=== PATIENT | female | born 1960 | race Caucasian/White ===

== ENCOUNTER 2018-05-24 12:48 | Inpatient (IN) ==
[2018-05-24] MEDS ORDERED: Piperacil/Tazo 4.5 GM Premix 4.5 GM/100 ML BAG IV.SIG ONE (14:26)
[2018-05-24] MEDS ORDERED: Acetaminophen 325 MG Tablet PO ONE (14:26)
[2018-05-24] MEDS ORDERED: Sod Chloride 0.9% Inj 1,000 ML IV.SIG SCH ×2 (14:30→14:45)
[2018-05-24] MEDS ORDERED: Vancomycin Inj 1,000 MG in Sodium Chlor 0.9% Inj 250 ML IV.SIG SCH (15:00)
[2018-05-24] MEDS ORDERED: Vancomycin Inj 1 GM/200 ML PIGGYBACK IV.SIG SCH (15:00)
[2018-05-24 15:06] LABS: Baso # (Auto) 0.1 th/mm3 (0.0-0.2); Baso % (Auto) 0.7 % (0.0-2.0); Eos # (Auto) 0.1 th/mm3 (0.0-0.4); Hematocrit 38.4 % (35.0-46.0); Hemoglobin 12.6 gm/dL (11.6-15.3); Lymph # (Auto) 2.9 th/mm3 (1.0-4.8); Lymph % (Auto) 23.8 % (9.0-44.0); Mean Corpuscular HGB Conc 32.8 % (32.0-36.0); Mean Corpuscular Hemoglobin 29.1 pg (27.0-34.0); Mean Corpuscular Volume 88.6 fL (80.0-100.0); Mean Platelet Volume 8.2 fL (7.0-11.0); Mono % (Auto) 7.9 % (0.0-8.0); Neut # (Auto) 8.1 th/mm3 (1.8-7.7); Neut % (Auto) 66.6 % (16.0-70.0); Platelet Count 299 th/mm3 (150-450); Red Blood Count 4.33 mil/mm3 (4.00-5.30); Red Cell Distribution Width 14.3 % (11.6-17.2); White Blood Count 12.1 th/mm3 (4.0-11.0)
--- NOTE | 2018-05-24 15:35 | ED ---
HPI General Chief complaint: Skin/Abscess/Foreign Body Stated complaint: Poss infected Wound Time Seen by Provider: 05/24/18 14:07 Source: patient and family Mode of arrival: ambulatory Limitations: no limitations History of Present Illness HPI narrative: 57-year-old female that presents to the ED for evaluation of fever, tachycardia and possible infection to her right breast. Patient has a history of what appears to be an implant that she had in the that apparently ruptured and had surgery for it around January by Dr. Rasmussen for removal of the implant. Apparently the implant was severely rupture and patient required significant surgery to remove the parts of the implant. Patient did well after the surgery except that she developed an infection on the wound. She has been per patient hospitalized in [facility] 3 times counting the initial hospitalization for the surgery. Per patient both times that she was readmitted for the infection she was given IV antibiotics and per patient she grew out MRSA. Blood cultures were negative every time. She follows with Dr. Purvis for infectious disease and has been following both the surgeon and infectious disease this week. She also follow with her primary care doctor this week. Per patient for the past 2-3 days she has been feeling weak and having low-grade fevers. Today the fever became more significant 102 with tachycardia. She has a wound VAC on the right side of the breast. Per patient she is to get infusions of antibiotics when she was admitted the last time to [facility] but not anymore. Per patient is currently on p.o. antibiotics. Per patient she was told by her primary care doctor that as she has been going to [facility] multiple times and has not really gotten better with the she should try [facility]. Hence she came here. She denies any other medical issues at this time. No pain. No chest pain or shortness of breath. Per patient her pain currently is 4 out of 10. She still has the wound VAC in place. No addition she is concerned because Dr Rasmussen is soon to be retired and her infection doesn't seem to be improving. Related Data Home Medications Medication Instructions Recorded Confirmed desvenlafaxine succinate [Pristiq] 100 mg PO DAILY 05/24/18 05/24/18 ferrous sulfate [Iron (ferrous 325 mg PO BID 05/24/18 05/24/18 sulfate)] minocycline 100 mg PO BID 05/24/18 05/24/18 sulfamethoxazole-trimethoprim 1 tab PO DAILY 05/24/18 05/24/18 [Bactrim DS] zinc sulfate 1 mg/kg PO DAILY 05/24/18 05/24/18 Allergies Allergy/AdvReac Type Severity Reaction Status Date / Time acetaminophen [From Percocet] Allergy Intermediate Agitated Verified 05/24/18 14 :24 oxycodone [From Percocet] Allergy Intermediate Agitated Verified 05/24/18 14:24 Review of Systems ROS: all other systems reviewed are negative [facility] Medical History Medical History Achilles tendinitis (Acute) Cervical vertebral fusion (Acute) Depression (Acute) Fusion of lumbar spine (Acute) Obese (Acute) Surgical History Surgical History H/O left knee surgery (Acute) History of neck surgery (Acute) Social History Social History Substance History: No History of Abuse Smoking Status: Former smoker How Often Do You Have a Drink Containing Alcohol: Monthly or less Recent Travel in [facility] within the Last 8 Weeks: No Recent Out of Country Travel within the Last 8 Weeks: No Immunization History Tetanus Immunization: >5 Years Exam Narrative Exam Narrative: GENERAL: Well appearing but morbedly obese SKIN: Focused skin assessment warm/dry. Seen with female nurse present. Patient does have what appears to be a wound which is about 4-5 cm on the right breast. She has a wound VAC in place that is draining fluid. HEAD: Atraumatic. Normocephalic. EYES: Pupils equal and round. No scleral icterus. No injection or drainage. ENT: No nasal bleeding or discharge. Mucous membranes pink and moist. Tongue is midline. No uvula deviation. NECK: Trachea midline. No JVD. CARDIOVASCULAR: Regular rate and rhythm. No murmur appreciated. RESPIRATORY: No accessory muscle use. Clear to auscultation. Breath sounds equal bilaterally. GASTROINTESTINAL: Abdomen soft, non-tender, nondistended. Hepatic and splenic margins not palpable. MUSCULOSKELETAL: No obvious deformities. No clubbing. No cyanosis. No edema. Full range of motion of the upper and lower extremities bilaterally. 2+ pulses bilaterally. NEUROLOGICAL: Awake and alert. No obvious cranial nerve deficits. Motor grossly within normal limits. Normal speech. PSYCHIATRIC: Appropriate mood and affect; insight and judgment normal. Course Initial Documented Vital Signs Temperature 102.2 F H 05/24/18 13:38 Pulse Rate 118 H 05/24/18 13:38 Respiratory Rate 20 05/24/18 13:38 Blood Pressure 146/94 H 05/24/18 13:38 Pulse Oximetry 95 05/24/18 13:38 Last Documented Vital Signs Temperature 102.2 F H 05/24/18 13:38 Pulse Rate 115 H 05/24/18 15:08 Respiratory Rate 26 H 05/24/18 15:08 Blood Pressure 136/85 05/24/18 13:59 Pulse Oximetry 96 05/24/18 15:08 Medical Decision Making MDM Narrative Medical decision making narrative: 57-year-old female that presents to the ED for evaluation of right breast infection. Patient was properly examined and was found to have signs and symptoms which appear to be likely postsurgical complication from her surgery and what appears to be a reinfection of her wound. Patient herself does not appear to be in a lot of pain on the drainage from the back does not appear to be significant. Per patient with the change that there was little pus like greenish fluid coming out of it. She does have a fever and she is tachycardic. She has had similar symptoms before and she needed hospitalization. I had a lengthy discussion with the patient about what her goals are. Patient herself does not want to go back to [facility] she feels like she is just not getting enough care there and although she fully understands of the doctors that she sees especially the plastic surgeon and the infectious disease doctor taking care of her do not come to this hospital she will prefer to have a second opinion and get treated here to see if this can get rid of the infection. She will prefer to see wound doctor here per patient. This was discussed in length with my attending Dr. Guy who was made aware of all findings. He recommends this patient does appear to have sepsis and an infection recommends admission for further evaluation and possible benefits specialist recruiter and infectious disease evaluation. Patient has been on multiple antibiotics in the past. Currently she did grow MRSA but apparently they never did the initial culture of the wound so they have been treating her empirically with antibiotics and they have been changing antibiotics per patient this is the third time. She continues to have infections. I was able to get the records from [facility] and those revealed that she did have cellulitis and infection of her right breast. Labs were ordered here and did show white blood cell count elevation as well as elevated CRP and ESR. Currently her breast is draining purulent material. No sign of surgical emergency at this time. At this time I think is reasonable and per my attendings recommendation to admit patient for IV antibiotics and further treatment as needed. This was discussed with Dr. Brumfield for [facility] were agree with plan. Will I was doing the workup for the patient and did got in contact with the patient's plastic surgeon Dr. Rasmussen who no longer practices at [facility]. He gave me a good history about the patient and he recommended that I counseled the patient that she will not unfortunately have continued to care here secondary to none of her doctors having affiliations here. As stated above I did discuss this at length with the patient. She wanted me to call them back once I had a plan for the patient. He was made aware of the plan and what the patient's wishes are and agrees with it. DR Rasmussen states that if any doctor wants to call him to call him at . Medical Screen Exam Complete: Yes Emergency Medical Condition: Yes Differential Diagnosis Differential Diagnosis: Sepsis versus wound infection versus cellulitis versus postsurgical complication Medical Records Medical records reviewed: Yes I reviewed the patient's medical records. Lab Data Lab results reviewed: Yes I reviewed the patient's lab results. Lab results narrative: lactic acid of 0.8 CRP elevated ESR elevated Result diagrams: 05/24/18 14:38 05/24/18 14:38 Lab Results 05/24/18 05/24/18 05/24/18 Range/Units 14:38 14:38 14:38 WBC 12.1 H (4.0-11.0) th/mm3 RBC 4.33 (4.00-5.30) mil/mm3 Hgb 12.6 (11.6-15.3) gm/dL Hct 38.4 (35.0-46.0) % MCV 88.6 (80.0-100.0) fL MCH 29.1 (27.0-34.0) pg MCHC 32.8 (32.0-36.0) % RDW 14.3 (11.6-17.2) % Plt Count 299 (150-450) th/mm3 MPV 8.2 (7.0-11.0) fL Neut % (Auto) 66.6 (16.0-70.0) % Lymph % (Auto) 23.8 (9.0-44.0) % [place] % (Auto) 7.9 (0.0-8.0) % Eos % (Auto) 1.0 (0.0-4.0) % Baso % (Auto) 0.7 (0.0-2.0) % Neut # (Auto) 8.1 H (1.8-7.7) th/mm3 Lymph # (Auto) 2.9 (1.0-4.8) th/mm3 [place] # (Auto) 1.0 H (0.0-0.9) th/mm3 Eos # (Auto) 0.1 (0.0-0.4) th/mm3 Baso # (Auto) 0.1 (0.0-0.2) th/mm3 WBC Differential . Differential Comment Auto diff final ESR (0-30) mm/hr Sodium 138 (136-145) meq/L Potassium 4.0 (3.5-5.1) meq/L Chloride 104 (98-107) meq/L Carbon Dioxide 24.5 (21.0-32.0) meq/L Anion Gap 10 (5-15) meq/L BUN 17 (7-18) mg/dL Creatinine 0.66 (0.50-1.00) mg/dL Estimated GFR Greater than 89 (>89) mL/min Random Glucose 105 (74-106) mg/dL Lactic Acid 0.8 (0.4-2.0) mmol/L Calcium 8.8 (8.5-10.1) mg/dL C-Reactive Protein (0.00-0.30) mg/dL 05/24/18 05/24/18 Range/Units 14:38 14:38 WBC (4.0-11.0) th/mm3 RBC (4.00-5.30) mil/mm3 Hgb (11.6-15.3) gm/dL Hct (35.0-46.0) % MCV (80.0-100.0) fL MCH (27.0-34.0) pg MCHC (32.0-36.0) % RDW (11.6-17.2) % Plt Count (150-450) th/mm3 MPV (7.0-11.0) fL Neut % (Auto) (16.0-70.0) % Lymph % (Auto) (9.0-44.0) % [place] % (Auto) (0.0-8.0) % Eos % (Auto) (0.0-4.0) % Baso % (Auto) (0.0-2.0) % Neut # (Auto) (1.8-7.7) th/mm3 Lymph # (Auto) (1.0-4.8) th/mm3 [place] # (Auto) (0.0-0.9) th/mm3 Eos # (Auto) (0.0-0.4) th/mm3 Baso # (Auto) (0.0-0.2) th/mm3 WBC Differential Differential Comment ESR 40 H (0-30) mm/hr Sodium (136-145) meq/L Potassium (3.5-5.1) meq/L Chloride (98-107) meq/L Carbon Dioxide (21.0-32.0) meq/L Anion Gap (5-15) meq/L BUN (7-18) mg/dL Creatinine (0.50-1.00) mg/dL Estimated GFR (>89) mL/min Random Glucose (74-106) mg/dL Lactic Acid (0.4-2.0) mmol/L Calcium (8.5-10.1) mg/dL C-Reactive Protein 12.10 H (0.00-0.30) mg/dL Discharge Plan Discharge Disposition Patient Disposition: 30 Still Patient Discharge Details Diagnosis: Sepsis, Infection of breast, right Physicians Team ED Provider: Pepe Guy ED Midlevel Provider: Isaac Alcaraz Primary Care Provider: Fan Alvarenga Attending Provider: Aron Brumfield Status ED Status: Admitted Patient
[2018-05-24 15:58] LABS: Blood Urea Nitrogen 17 mg/dL (7-18)
[2018-05-24 16:00] LABS: Anion Gap 10 meq/L (5-15); Calcium 8.8 mg/dL (8.5-10.1); Carbon Dioxide 24.5 meq/L (21.0-32.0); Chloride 104 meq/L (98-107); Glomerular Filtration Rate Greater Than 89 mL/min (>89); Glucose,Random 105 mg/dL (74-106); Sodium 138 meq/L (136-145)
--- NOTE | 2018-05-24 19:02 | P.HP ---
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 She has a history of very large breasts which required breast reduction surgery in the 1970s. In 1981 she received silicone breast implants. On March 07 of this year she had a revision surgery following rupture of her silicone implants. The left silicone implant remains encapsulated, but the right silicone implant spelled it silicone contents into breast and chest wall spaces. On March 20 the site became infected and the saline implants were removed. IV antibiotics continued until April 03. On March 31 recurrence of the infection required another round of IV antibiotics. IV antibiotics with daptomycin were stopped on May 14. Since onset she has received vancomycin and ceftaroline, daptomycin, minocycline, Bactrim DS, but the infection keeps recurring. I had a discussion with the patient about the possibility of retained silicone harboring infection, there is a known piece of silicone that is difficult to get to and adhered near her chest wall. Medical records have been obtained from [facility]. She denies any nausea vomiting or diarrhea. She denies any neurological symptoms. She denies any cardiac chest pain, irregular heartbeats, diaphoresis. Inpatient Certification: I certify that the inpatient services were ordered in accordance with Medicare regulations governing the order. This includes certification that hospital inpatient services are reasonable and necessary and in the case of services not specified as inpatient-only under 42 CFR 419.22(n), that they are appropriately provided as inpatient services in accordance to with the 2-midnight benchmark under 43 CFR 412.3(e) Estimated Total Length of Stay (Days): 4 Plans for Post Hospital Care: Home health Review of Systems All other systems reviewed negative except as stated in HPI PMFSH - History History Provided By: Patient - Medical History Medical History: Medical History (Last Reviewed 05/24/18 @ 15:33 by STACY Garrett) Achilles tendinitis Cervical vertebral fusion Depression Fusion of lumbar spine Obese - Surgical History Surgical History: Surgical History (Last Reviewed 05/24/18 @ 15:33 by STACY Garrett) H/O left knee surgery History of neck surgery - Family History Family History: Family History (Last Updated 05/24/18 @ 18:50 by Aron Brumfield MD) Other Hypertension - Tobacco History Smoking Status: Former smoker - Alcohol History How Often Do You Have a Drink Containing Alcohol: Monthly or less - Substance Use History Substance History: No History of Abuse - Travel History Recent Travel in the [place] Within the Last 8 Weeks: No Recent Travel Out of the Country Within the Last 8 Weeks: No - Immunization History Tetanus Immunization: >5 Years Medications and Allergies Active Medications: Active Medications Cyclobenzaprine HCl (Flexeril) 5 mg PO Q8HR DEEP Diazepam (Valium) 2 mg PO Q12H PRN PRN Reason: ANXIETY Enoxaparin Sodium (Lovenox Inj) 40 mg SQ Q24H DEEP Sodium Chloride (Ns Inj) 1,000 mls @ 0 mls/hr IV.SIG BOLUS DEEP Last Admin: 05/24/18 14:56 Dose: 999 mls/hr Sodium Chloride (Ns Inj) 1,000 mls @ 0 mls/hr IV.SIG BOLUS DEEP Last Admin: 05/24/18 14:55 Dose: 999 mls/hr Vancomycin HCl 1,000 mg/ (Sodium Chloride) 250 mls @ 250 mls/hr IV.SIG TINNING EQUIPMENT TENDER DEEP Last Admin: 05/24/18 14:56 Dose: 250 mls/hr Ondansetron HCl (Zofran Inj) 4 mg IV.PUSH Q6H PRN PRN Reason: NAUSEA OR VOMITING Sennosides (Senokot) 17.2 mg PO Q12H PRN PRN Reason: Moderate Constipation Allergies Allergy/AdvReac Type Severity Reaction Status Date / Time acetaminophen [From Percocet] Allergy Intermediate Agitated Verified 05/24/18 14 :24 oxycodone [From Percocet] Allergy Intermediate Agitated Verified 05/24/18 14:24 Home Medications Medication Instructions Recorded Confirmed Type desvenlafaxine succinate [Pristiq] 100 mg PO DAILY 05/24/18 05/24/18 History ferrous sulfate [Iron (ferrous 325 mg PO BID 05/24/18 05/24/18 History sulfate)] minocycline 100 mg PO BID 05/24/18 05/24/18 History sulfamethoxazole-trimethoprim 1 tab PO DAILY 05/24/18 05/24/18 History [Bactrim DS] zinc sulfate 1 mg/kg PO DAILY 05/24/18 05/24/18 History Exam Vital signs: Vital Signs 05/24/18 13:38 05/24/18 13:59 05/24/18 15:08 Temperature 102.2 F H Pulse Rate 118 H 117 H 115 H Respiratory Rate 20 22 26 H Blood Pressure 146/94 H 136/85 Pulse Oximetry 95 95 96 05/24/18 17:56 Temperature Pulse Rate 103 H Respiratory Rate 22 Blood Pressure 140/65 Pulse Oximetry 94 L Intake & Output 05/23/18 05/24/18 05/24/18 18:59 06:59 18:59 Weight 133.81 kg Narrative: GENERAL: AAOx3, no acute distress, obese SKIN: Warm and dry, no rashes. HEAD: Atraumatic. Normocephalic. EYES: Pupils equal, round, reactive to light. No scleral icterus. No injection or drainage. ENT: No nasal bleeding or discharge. Moist mucous membranes. Nonerythematous oropharynx. NECK: Trachea midline. No JVD. Thyroid size within normal limits. BREAST: 4 cm wound with tunneling beyond eyesight reach, surrounding erythema, pus present, wound VAC in place CARDIOVASCULAR: Regular rate and rhythm. No murmur, no gallops, no rubs. RESPIRATORY: Clear and equal to auscultation bilaterally. No crackles, no wheezes. No accessory muscle use. GASTROINTESTINAL: Abdomen soft, non-tender, nondistended, normal active bowel sounds. Hepatic and splenic margins not palpable. MUSCULOSKELETAL: Extremities without clubbing or cyanosis. No obvious deformities. No edema. NEUROLOGICAL: Awake and alert. No obvious cranial nerve deficits. Motor grossly within normal limits. No focal deficits. Five out of 5 muscle strength in the arms and legs. Normal speech. PSYCHIATRIC: Appropriate mood and affect; insight and judgment normal. Results - Labs CBC & Chem 7: 05/24/18 14:38 05/24/18 14:38 Labs: Laboratory Results - last 24 hr 05/24/18 05/24/18 05/24/18 14:38 14:38 14:38 WBC 12.1 H RBC 4.33 Hgb 12.6 Hct 38.4 MCV 88.6 MCH 29.1 MCHC 32.8 RDW 14.3 Plt Count 299 MPV 8.2 Neut % (Auto) 66.6 Lymph % (Auto) 23.8 [place] % (Auto) 7.9 Eos % (Auto) 1.0 Baso % (Auto) 0.7 Neut # (Auto) 8.1 H Lymph # (Auto) 2.9 [place] # (Auto) 1.0 H Eos # (Auto) 0.1 Baso # (Auto) 0.1 WBC Differential . Differential Comment Auto diff final ESR Sodium 138 Potassium 4.0 Chloride 104 Carbon Dioxide 24.5 Anion Gap 10 BUN 17 Creatinine 0.66 Estimated GFR Greater than 89 Random Glucose 105 Lactic Acid 0.8 Calcium 8.8 C-Reactive Protein 05/24/18 05/24/18 14:38 14:38 WBC RBC Hgb Hct MCV MCH MCHC RDW Plt Count MPV Neut % (Auto) Lymph % (Auto) [place] % (Auto) Eos % (Auto) Baso % (Auto) Neut # (Auto) Lymph # (Auto) [place] # (Auto) Eos # (Auto) Baso # (Auto) WBC Differential Differential Comment ESR 40 H Sodium Potassium Chloride Carbon Dioxide Anion Gap BUN Creatinine Estimated GFR Random Glucose Lactic Acid Calcium C-Reactive Protein 12.10 H Caprini VTE Risk Assessment Caprini VTE Risk Assessment: Moderate/High Risk (score >= 2) Caprini Risk Assessment Model: Point Value = 1 Point Value = 2 Point Value = 3 Point Value = 5 Age 41-60 Minor surgery BMI > 25 kg/m2 Swollen legs Varicose veins or History of unexplained or recurrent spontaneous Oral contraceptives or hormone replacement Sepsis (< 1 month) Serious lung disease, including pneumonia (< 1 month) Abnormal pulmonary function Acute myocardial infarction Congestive heart failure (< 1 month) History of inflammatory bowel disease Medical patient at bed rest Age 61-74 Arthroscopic surgery Major open surgery (> 45 min) Laparoscopic surgery (> 45 min) Malignancy Confined to bed (> 72 hours) Immobilizing plaster cast Central venous access Age >= 75 History of VTE Family history of VTE Factor V Leiden Prothrombin [id number] Lupus anticoagulant Anticardiolipin antibodies Elevated serum homocysteine Heparin-induced thrombocytopenia Other congenital or acquired thrombophilia Stroke (< 1 month) Elective arthroplasty Hip, pelvis, or leg fracture Acute spinal cord injury (< 1 month) Prophylaxis Regimen: Total Risk Factor Score Risk Level Prophylaxis Regimen 0-1 Low Early ambulation 2 Moderate Order ONE of the following: *Sequential Compression Device (SCD) *Heparin 5000 units SQ BID 3-4 Higher Order ONE of the following medications: *Heparin 5000 units SQ TID *Enoxaparin/Lovenox 40 mg SQ daily (WT < 150 kg, CrCl > 30 mL/min) *Enoxaparin/Lovenox 30 mg SQ daily (WT < 150 kg, CrCl > 10-29 mL/min) *Enoxaparin/Lovenox 30 mg SQ BID (WT < 150 kg, CrCl > 30 mL/min) AND/OR *Sequential Compression Device (SCD) 5 or more Highest Order ONE of the following medications: *Heparin 5000 units SQ TID (Preferred with Epidurals) *Enoxaparin/Lovenox 40 mg SQ daily (WT < 150 kg, CrCl > 30 mL/min) *Enoxaparin/Lovenox 30 mg SQ daily (WT < 150 kg, CrCl > 10-29 mL/min) *Enoxaparin/Lovenox 30 mg SQ BID (WT < 150 kg, CrCl > 30 mL/min) AND *Sequential Compression Device (SCD) Assessment and Plan - Plan Recurrent right breast infection, complex MRSA is diagnosed and has been treated with multiple antibiotics including daptomycin, vancomycin, cephalosporins, minocycline, Bactrim There is a history of spillage of silicone into her breast and chest wall, consider harbored foreign body as source of recurrent infection Consulting infectious disease to assist with antibiotic selection, currently single dose of Zosyn and vancomycin per ER doc Consulting general surgery for assistance with workup for foreign body retention Chronic back pain History of surgeries Patient complains of spasms, requests Flexeril and Valium DVT Prophylaxis Lovenox
--- NOTE | 2018-05-24 19:15 | CT ---
EXAM DATE: 05/24/2018 7:07 PM EDT AGE/SEX: 57 years / Female INDICATIONS: Right breast wound being treated for several months now looking infected CLINICAL DATA: This is the patient's initial encounter. Patient reports that signs and symptoms have been present for 1 day and indicates a pain score of 4/10. MEDICAL/SURGICAL HISTORY: . ruptured breast implant . cervical fusion RADIATION DOSE: 19.17 CTDI (mGy) COMPARISON: No prior exams available for comparison. TECHNIQUE: Multiple contiguous axial images were obtained through the chest during bolus infusion of 67 ml Omnipaque 350 (iohexol) nonionic water-soluble contrast as a single exam dose. Images were obtained in suspended respiration using multiple row detector helical technique. Using automated exp osure control and adjustment of the mA and/or kV according to patient size, radiation dose was kept a s low as reasonably achievable to obtain optimal diagnostic quality images. DICOM format image data is available electronically for review and comparison. FINDINGS: Lungs: The lungs are symmetrically aerated. No infiltrates or nodular densities are seen. Mediastinum: There is good visualization of the great vessels of the middle mediastinum. No evidenc e of mediastinal or hilar adenopathy/mass. Pleurae: No evidence of focal thickening or pleural effusion. Axillae: There is a defect seen in the lateral mid right chest. This involves the superficial fat an d extends down to the pectoralis muscle. There is surrounding inflammatory change. This extends into the right axillary region. Bony Structures: There is an anterior cervical fusion plate present. No areas of bony destruction ar e seen. Miscellaneous: The examination was extended to include the upper abdomen, and both adrenal glands ar e normal in size and configuration. There is diffuse hepatic steatosis. There appears to be a possibl e mild hiatal hernia. CONCLUSION: 1. Soft tissue defect at the right lateral chest extending to the pectoralis muscle with surrounding induration. Focal fluid collection is not seen. 2. Hepatic steatosis. Electronically signed by: Pepe Aguero MD 05/24/2018 7:13 PM EDT
[2018-05-24] MEDS: diazePAM 2 MG Tablet PO PRN (19:25)
[2018-05-24] MEDS ORDERED: Acetaminophen 325 MG Tablet PO PRN (19:40)
[2018-05-24] MEDS ORDERED: Naloxone Inj 0.4 MG/ML Vial IV.PUSH PRN (19:40)
[2018-05-24] MEDS: Enoxaparin Inj 40 MG/0.4 ML Syringe SQ SCH (21:21)
--- NOTE | 2018-05-25 13:57 | P.CONID ---
History of Present Illness Service: Infectious disease Consult date: 05/25/18 Requesting Physician: Aron Brumfield Reason for Consult: Evaluate patient with recurrent infection on the right chest wall Primary Care Provider: Fan Alvarenga History of Present Illness: Patient seen and examined. Records reviewed. Patient is a 57-year-old female with complicated history on her right chest wall , presented to the hospital for further evaluation of fevers and generalized weakness. Patient has had breast surgery back in the s, and at that time she had bilateral breast reduction and augmentation with silicone implant. She has done fairly well and has not had any problem until January of this year during the Day weekend when she noticed a lump on her right chest. She saw her primary care physician and an ultrasound and mammogram was done, and it showed leaking of her silicone implant which was severe on the right, and the leak on her left breast implant had stayed within the capsule. She was referred to a plastic surgeon, and she was seen around February 22, and surgery was done on March 07 on an outpatient basis. She had removal of both breast implants, and apparently the procedure on the right breast was quite difficult because the silicone had gone to multiple areas on her right chest wall into the muscle, and some tracking laterally and into the back. There was some mention that there could be a possibility that some of the silicone was not removed. Around March 19 patient developed chills, and she called her surgeon and she was started on Bactrim. The chills got better but she was not improving so she was admitted at [facility] on March 20. She underwent surgery, and had removal of both breast implants, and there was a culture done that grew MRSA , and fungal and AFB cultures were negative at that time. She was discharged with a PICC line on March 25 and was given IV vancomycin until April 03. During that hospitalization, the wound on her right chest wall was left open and she had a wound VAC that gets change Monday and Saturdays. Patient was seen in follow-up by ID, and on April 03 after she finished her vancomycin she was started on minocycline. She was apparently doing okay up until April 12 when she had recurrent fever and chills. She got readmitted to the hospital and had a fever of 103 and she had tachycardia. She had blood cultures and urine culture which were negative. And there was a fluid culture from the right chest wound that also came back negative. The patient stated that the wound culture was obtained after she had been in the hospital for 2 days and receiving IV antibiotics. This time the patient was sent home on Cubicin and Teflaro, and she completed her IV antibiotics on May 14. Patient was seen in follow-up by ID, and May 15 she was put on Bactrim and minocycline. Patient still has a wound VAC in place, and the wound was getting smaller but the patient was told that the tunneling seems to be getting deeper. On May 22 she started developing weakness, and soon after that she has had fevers. She saw her primary care physician and had some blood cultures done. She continues to have her symptoms so this time she presented here at [facility] for further evaluation and treatment. Since admission, highest temperature has been 102.2. Her WBC is 12.1. Sed rate is 40. CRP 12.10. CT of the chest did not show any fluid collections. Patient denies any respiratory complaint. No vomiting or diarrhea. She denies any urinary complaints. She has not had any rash or itching. Infectious disease consultation has been requested to assist with evaluation and treatment of recurrent infection on her right chest. Review of Systems Constitutional: Reports chills, Reports fever(s), Reports weakness Eyes: Denies discharge, Denies dry eyes Ears, Nose, Mouth, and Throat: Denies difficulty swallowing, Denies nasal congestion, Denies nasal discharge, Denies pain with swallowing, Denies sore throat Cardiovascular: Denies chest pain, Denies shortness of breath Respiratory: Denies chest congestion, Denies cough, Denies shortness of breath Gastrointestinal: Denies abdominal pain, Denies loose stools, Denies nausea, Denies vomiting Genitourinary: Denies difficulty urinating, Denies painful urination Musculoskeletal: Denies joint pain, Denies joint swelling Skin/Breast: Denies rash PMFSH - History History Provided By: Patient - Medical History Medical History: Medical History (Last Updated 05/25/18 @ 13:44 by Hailey Ny MD) Achilles tendinitis Cervical vertebral fusion Depression 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 Obese - Surgical History Surgical History: Surgical History (Last Updated 05/25/18 @ 13:46 by Hailey Ny MD) H/O left knee surgery History of neck surgery Hx of bilateral breast reduction surgery Hx of breast augmentation Total knee replacement status - Family History Family History: Family History (Last Updated 05/24/18 @ 18:50 by Aron Brumfield MD) Other Hypertension - Tobacco History Second Hand Smoke Exposure: No Smoking Status: Former smoker Tobacco Type: Cigarettes - Alcohol History How Often Do You Have a Drink Containing Alcohol: Monthly or less - Substance Use History Substance History: No History of Abuse - Travel History Recent Travel in the [place] Within the Last 8 Weeks: No Recent Travel Out of the Country Within the Last 8 Weeks: No - Immunization History Tetanus Immunization: >5 Years Hx Influenza Vaccine This Season: No Medications and Allergies Active Medications: Active Medications Acetaminophen (Tylenol) 650 mg PO Q6HR PRN PRN Reason: PAIN SCALE 1 TO 2 Hydrocodone Bitart/Acetaminophen ([place] 5/325) 1 tab PO Q4H PRN PRN Reason: pain 1 to 10 Cyclobenzaprine HCl (Flexeril) 5 mg PO Q8HR [facility] Last Admin: 05/24/18 22:15 Dose: 5 mg Diazepam (Valium) 2 mg PO Q12H PRN PRN Reason: ANXIETY Last Admin: 05/24/18 19:25 Dose: 2 mg Enoxaparin Sodium (Lovenox Inj) 40 mg SQ Q24H DEEP Last Admin: 05/24/18 21:21 Dose: 40 mg Sodium Chloride (Ns Inj) 1,000 mls @ 0 mls/hr IV.SIG BOLUS [facility] Last Infusion: 05/24/18 22:00 Dose: Infused Sodium Chloride (Ns Inj) 1,000 mls @ 0 mls/hr IV.SIG BOLUS [facility] Last Infusion: 05/24/18 18:30 Dose: Infused Vancomycin HCl 1,000 mg/ (Sodium Chloride) 250 mls @ 250 mls/hr IV.SIG 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 DEEP Last Infusion: 05/24/18 18:30 Dose: Infused Piperacillin/Tazobactam/Dextrose (Zosyn 4.5 Gm Premix) 4.5 gm in 100 mls @ 200 mls/hr IV.SIG Q12H DEEP Vancomycin HCl 1,000 mg/ (Sodium Chloride) 250 mls @ 250 mls/hr IV.SIG Q24H DEEP Naloxone HCl (Narcan Inj) 0.4 mg IV.PUSH UNSCH PRN PRN Reason: SEE LABEL COMMENTS Ondansetron HCl (Zofran Inj) 4 mg IV.PUSH Q6H PRN PRN Reason: NAUSEA OR VOMITING Sennosides (Senokot) 17.2 mg PO Q12H PRN PRN Reason: Moderate Constipation Tramadol HCl (Ultram) 50 mg PO Q4H PRN PRN Reason: PAIN SCALE 3 TO 5 Last Admin: 05/25/18 08:36 Dose: 50 mg Tramadol HCl (Ultram) 100 mg PO Q4H PRN PRN Reason: PAIN SCALE 6 TO 10 Last Admin: 05/24/18 20:52 Dose: 100 mg Allergies Allergy/AdvReac Type Severity Reaction Status Date / Time oxycodone [From Percocet] Allergy Intermediate Insomnia Verified 05/24/18 23:24 Home Medications Medication Instructions Recorded Confirmed Type desvenlafaxine succinate [Pristiq] 100 mg PO DAILY 05/24/18 05/24/18 History ferrous sulfate [Iron (ferrous 325 mg PO BID 05/24/18 05/24/18 History sulfate)] minocycline 100 mg PO BID 05/24/18 05/24/18 History sulfamethoxazole-trimethoprim 1 tab PO DAILY 05/24/18 05/24/18 History [Bactrim DS] zinc sulfate 1 mg/kg PO DAILY 05/24/18 05/24/18 History Exam Vital signs: Vital Signs 05/24/18 13:38 05/24/18 13:59 05/24/18 15:08 Temperature 102.2 F H Pulse Rate 118 H 117 H 115 H Respiratory Rate 20 22 26 H Blood Pressure 146/94 H 136/85 Pulse Oximetry 95 95 96 05/24/18 17:56 05/24/18 19:37 05/24/18 20:00 Temperature 98.1 F 99.3 F Pulse Rate 103 H 92 H Respiratory Rate 22 18 Blood Pressure 140/65 112/77 Pulse Oximetry 94 L 93 L 05/25/18 00:00 05/25/18 04:00 05/25/18 08:00 Temperature 98.7 F 98.8 F 98.3 F Pulse Rate 96 H 131 H 91 H Respiratory Rate 18 18 20 Blood Pressure 111/59 L 127/67 136/86 Pulse Oximetry 94 L 94 L 94 L 05/25/18 12:00 Temperature 98.1 F Pulse Rate 103 H Respiratory Rate Blood Pressure 107/77 Pulse Oximetry 94 L Intake & Output 05/24/18 05/25/18 05/25/18 18:59 06:59 18:59 Intake Total 1350 / 1350 1480 / 1480 Output Total 900 / 900 Balance 1350 / 1350 580 / 580 Weight 133.81 kg 134.3 kg Intake: IV 1350 / 1350 1000 / 1000 NS Inj 1,000 ML @ Wide Open IV. 1000 / 1000 1000 / 1000 SIG BOLUS DEEP Rx#:[id number] Vancomycin Inj 1,000 MG In NS 250 / 250 Inj 250 ML @ 250 mls/hr IV.SIG CORE INSERTER DEEP Rx#:[id number] Oral 480 / 480 Output: Urine 900 / 900 Other: # Voids 0 Weight On Admission 135.1 kg Narrative: Physical Examination GENERAL: Patient is an obese, well-developed female, awake and alert, not in respiratory distress. She does not look toxic appearing SKIN: Cool and dry. No generalized rash, no ecchymoses and no evidence of embolic lesions. HEAD: Atraumatic. Normocephalic. No temporal wasting, or tenderness. EYES: [place] conjunctiva. No petechia or hemorrhage. Pupils equal, round and reactive to light. Extraocular movements full and intact. No scleral icterus. No injection or drainage. EARS, NOSE AND THROAT: Nose without bleeding or purulent nasal discharge. No sinus tenderness. Mucous membranes pink and moist. No oral lesions noted. NECK: Trachea midline. Supple and not tender, no meningeal signs CARDIOVASCULAR: Regular rate and rhythm. No murmurs, rubs or gallops heard RESPIRATORY: Clear to auscultation. No rales, wheezing or rhonchi. Decreased breath sounds at the bases BREAST: L breast has well healed incisions. R breast - has well healed incision except for about 3 inch that has a wound vac in place. There is no erythema or induration of skin noted on her R chest wall ABDOMEN: Soft, obese, non-tender, nondistended. Bowel sounds present and normoactive. No guarding. No rebound. EXTREMITIES: No clubbing, cyanosis, or edema.No joint effusion, has good ROM. No calf tenderness. Well perfused and warm. NEUROLOGICAL: Awake and alert. Cranial nerves grossly intact. Motor grossly within normal limits. PSYCHIATRIC: Normal affect, calm and cooperative. LINE: No evidence of infection Results - Labs CBC & Chem 7: 05/24/18 14:38 05/24/18 14:38 Labs: Laboratory Results - last 24 hr 05/24/18 05/24/18 05/24/18 14:38 14:38 14:38 WBC 12.1 H RBC 4.33 Hgb 12.6 Hct 38.4 MCV 88.6 MCH 29.1 MCHC 32.8 RDW 14.3 Plt Count 299 MPV 8.2 Neut % (Auto) 66.6 Lymph % (Auto) 23.8 [place] % (Auto) 7.9 Eos % (Auto) 1.0 Baso % (Auto) 0.7 Neut # (Auto) 8.1 H Lymph # (Auto) 2.9 [place] # (Auto) 1.0 H Eos # (Auto) 0.1 Baso # (Auto) 0.1 WBC Differential . Differential Comment Auto diff final ESR Sodium 138 Potassium 4.0 Chloride 104 Carbon Dioxide 24.5 Anion Gap 10 BUN 17 Creatinine 0.66 Estimated GFR Greater than 89 Random Glucose 105 Lactic Acid 0.8 Calcium 8.8 C-Reactive Protein 05/24/18 05/24/18 14:38 14:38 WBC RBC Hgb Hct MCV MCH MCHC RDW Plt Count MPV Neut % (Auto) Lymph % (Auto) [place] % (Auto) Eos % (Auto) Baso % (Auto) Neut # (Auto) Lymph # (Auto) [place] # (Auto) Eos # (Auto) Baso # (Auto) WBC Differential Differential Comment ESR 40 H Sodium Potassium Chloride Carbon Dioxide Anion Gap BUN Creatinine Estimated GFR Random Glucose Lactic Acid Calcium C-Reactive Protein 12.10 H - Imaging Impressions Chest CT 05/24/18 15:12 CONCLUSION: 1. Soft tissue defect at the right lateral chest extending to the pectoralis muscle with surrounding induration. Focal fluid collection is not seen. 2. Hepatic steatosis. Assessment and Plan - Plan Impression Possible sepsis on admission R chest wall wound infection recurrent - has wound vac in place - ?same problem or new pathogen Hx silicone breast implants leak, S/P surgery and removal of implants and silicone leak March 07, 2018 - subsequent infection MRSA, S/P removal of new bilateral breast implants March 20, 2018 Recommendation Follow new C/S Follow temps Follow CBC Continue Zosyn Change vanco to Cubicin Continue wound vac - will ask to get new C/S whe she gets her wound vac changed Monitor progress I will follow along with you Thank you for this consultation Spoke with patient and and answered all their question
[2018-05-25] MEDS ORDERED: Vancomycin Inj 1,000 MG in Sodium Chlor 0.9% Inj 250 ML IV.SIG SCH (16:00)
--- NOTE | 2018-05-25 16:11 | P.PNIM ---
Subjective Interval history: Patient has less malaise, decreased fever, overall feeling much better per her report after receiving 1 dose of vancomycin. Physical Exam Vital signs: Vital Signs 05/24/18 17:56 05/24/18 19:37 05/24/18 20:00 Temperature 98.1 F 99.3 F Pulse Rate 103 H 92 H Respiratory Rate 22 18 Blood Pressure 140/65 112/77 Pulse Oximetry 94 L 93 L 05/25/18 00:00 05/25/18 04:00 05/25/18 08:00 Temperature 98.7 F 98.8 F 98.3 F Pulse Rate 96 H 131 H 91 H Respiratory Rate 18 18 20 Blood Pressure 111/59 L 127/67 136/86 Pulse Oximetry 94 L 94 L 94 L 05/25/18 12:00 Temperature 98.1 F Pulse Rate 103 H Respiratory Rate Blood Pressure 107/77 Pulse Oximetry 94 L Intake & Output 05/24/18 05/25/18 05/25/18 18:59 06:59 18:59 Intake Total 1350 / 1350 1480 / 1480 Output Total 900 / 900 Balance 1350 / 1350 580 / 580 Weight 133.81 kg 134.3 kg Intake: IV 1350 / 1350 1000 / 1000 NS Inj 1,000 ML @ Wide Open IV. 1000 / 1000 1000 / 1000 SIG BOLUS DEEP Rx#:[id number] Vancomycin Inj 1,000 MG In NS 250 / 250 Inj 250 ML @ 250 mls/hr IV.SIG PROCESS WORKER DEEP Rx#:[id number] Oral 480 / 480 Output: Urine 900 / 900 Other: # Voids 0 Weight On Admission 135.1 kg Narrative: GENERAL: AAOx3, no acute distress, obese SKIN: Warm and dry. No rashes, 5 cm tunneling skin infection on right breast under gauze HEAD: Atruamtic, normocephalic. EYES: No scleral icterus. No injection or drainage. ENT: Moist mucous membranes, patent nares, no erythema of oropharynx. NECK: Supple, trachea midline. No JVD or lymphadenopathy. Normal thyroid. CARDIOVASCULAR: Regular rate and rhythm. No murmurs, gallops, or rubs. RESPIRATORY: Breath sounds clear equal bilaterally. No crackles or wheezes. No accessory muscle use. GASTROINTESTINAL: Abdomen soft, non-tender, nondistended, normal active bowel sounds MUSCULOSKELETAL: No cyanosis, or edema. NEURO: CN II-XII grossly intact, no focal deficits, no slurring of speech Results - Labs CBC & Chem 7: 05/24/18 14:38 05/24/18 14:38 Microbiology 05/24/18 14:20 Abscess - Breast Gram Stain - Final 05/24/18 14:20 Abscess - Breast Wound Culture - Preliminary gram positive cocci 05/24/18 14:20 Blood - Peripheral Aerobic Blood Culture - Preliminary No growth in 1 day 05/24/18 14:20 Blood - Peripheral Anaerobic Blood Culture - Preliminary No growth in 1 day 05/24/18 14:30 Blood - Peripheral Aerobic Blood Culture - Preliminary No growth in 1 day 05/24/18 14:30 Blood - Peripheral Anaerobic Blood Culture - Preliminary No growth in 1 day - Imaging Impressions Chest CT 05/24/18 15:12 CONCLUSION: 1. Soft tissue defect at the right lateral chest extending to the pectoralis muscle with surrounding induration. Focal fluid collection is not seen. 2. Hepatic steatosis. Assessment and Plan - Plan Recurrent right breast infection, complex MRSA is diagnosed and has been treated with multiple antibiotics including daptomycin, vancomycin, cephalosporins, minocycline, Bactrim There is a history of spillage of silicone into her breast and chest wall, consider harbored foreign body as source of recurrent infection Infectious disease recommends Cubicin instead of vancomycin, continue Zosyn Infectious disease also suspects sponge size disparity and wound VAC placement Appreciate infectious disease consult General surgery consult pending Chronic back pain History of back surgeries Continue Flexeril and Valium, home dose hydrocodone added DVT Prophylaxis Lovenox
[2018-05-25] MEDS: Piperacil/Tazo 4.5 GM Premix 4.5 GM/100 ML BAG IV.SIG SCH (16:59)
[2018-05-25 20:23] LABS: Bilirubin,Urine Negative (Negative); Clarity,Urine Clear (Clear); Color,Urine Straw (Yellw/Straw); Glucose,Urine (UA) Negative (Negative); Leukocyte Esterase,Urine Negative (Negative); Nitrite,Urine Negative (Negative); Specific Gravity,Urine 1.003 (1.002-1.035); Squamous Epithelial Cell,Urine <1 /hpf (0-5)
[2018-05-25] MEDS: Enoxaparin Inj 40 MG/0.4 ML Syringe SQ SCH (20:58)
[2018-05-26] MEDS: Piperacil/Tazo 4.5 GM Premix 4.5 GM/100 ML BAG IV.SIG SCH ×2 (03:14→17:40)
[2018-05-26 06:48] LABS: Eos # (Auto) 0.3 th/mm3 (0.0-0.4); Eos % (Auto) 6.6 % (0.0-4.0); Hematocrit 34.6 % (35.0-46.0); Hemoglobin 11.5 gm/dL (11.6-15.3); Lymph # (Auto) 1.9 th/mm3 (1.0-4.8); Lymph % (Auto) 39.4 % (9.0-44.0); Mean Corpuscular HGB Conc 33.1 % (32.0-36.0); Mean Corpuscular Hemoglobin 29.2 pg (27.0-34.0); Mean Corpuscular Volume 88.1 fL (80.0-100.0); Mean Platelet Volume 7.9 fL (7.0-11.0); Mono # (Auto) 0.4 th/mm3 (0.0-0.9); Mono % (Auto) 8.7 % (0.0-8.0); Neut # (Auto) 2.2 th/mm3 (1.8-7.7); Neut % (Auto) 44.3 % (16.0-70.0); Platelet Count 257 th/mm3 (150-450); Red Blood Count 3.93 mil/mm3 (4.00-5.30); White Blood Count 4.9 th/mm3 (4.0-11.0)
[2018-05-26 06:57] LABS: Anion Gap 10 meq/L (5-15); Blood Urea Nitrogen 9 mg/dL (7-18); Calcium 8.3 mg/dL (8.5-10.1); Carbon Dioxide 28.4 meq/L (21.0-32.0); Chloride 107 meq/L (98-107); Glomerular Filtration Rate Greater Than 89 mL/min (>89); Glucose,Random 104 mg/dL (74-106); Potassium 4.2 meq/L (3.5-5.1); Sodium 145 meq/L (136-145)
[2018-05-26 07:08] LABS: Creatine Kinase 129 U/L (26-192)
[2018-05-26] MEDS: DAPTOmycin Inj 900 MG in Sodium Chlor 0.9% Inj 100 ML IV.SIG SCH (11:34)
[2018-05-26] MEDS: diazePAM 2 MG Tablet PO PRN (12:59)
--- NOTE | 2018-05-26 15:38 | P.PNIM ---
Subjective Interval history: Patient reports that she feels well today. We discussed imaging options, her CT does show evidence of retained silicone. MRI would give us more details on that. Physical Exam Vital signs: Vital Signs 05/25/18 16:00 05/25/18 20:00 05/26/18 00:00 Temperature 97.9 F 98 F Pulse Rate 87 101 H 90 Respiratory Rate 18 18 Blood Pressure 139/71 137/77 Pulse Oximetry 94 L 95 05/26/18 04:00 05/26/18 08:00 Temperature 97.8 F 97.7 F Pulse Rate 83 88 Respiratory Rate 18 Blood Pressure 116/75 129/72 Pulse Oximetry 96 94 L Intake & Output 05/25/18 05/26/18 05/26/18 18:59 06:59 18:59 Intake Total 350 / 350 580 / 580 100 / 100 Output Total 1500 / 1500 1200 / 1200 Balance -1150 / -1150 -620 / -620 100 / 100 Weight 139.6 kg Intake: IV 350 / 350 100 / 100 100 / 100 Cubicin Inj 900 MG In NS Inj 100 / 100 100 ML @ 200 mls/hr IV.SIG Q24H DEEP Rx#:[id number] Zosyn 4.5 GM Premix 4.5 gm In 100 / 100 100 / 100 100 ml @ 200 mls/hr IV.SIG Q12H DEEP Rx#:[id number] Vancomycin Inj 1,000 MG In NS 250 / 250 Inj 250 ML @ 250 mls/hr IV.SIG Q24H DEEP Rx#:[id number] Oral 480 / 480 Output: Urine 1500 / 1500 1200 / 1200 Other: # Voids 0 Date of Last Bowel Movement 05/25/18 05/25/18 # Bowel Movements 0 Narrative: GENERAL: AAOx3, no acute distress, obese SKIN: Warm and dry. No rashes, 5 cm tunneling skin infection on right breast under gauze HEAD: Atruamtic, normocephalic. EYES: No scleral icterus. No injection or drainage. ENT: Moist mucous membranes, patent nares, no erythema of oropharynx. NECK: Supple, trachea midline. No JVD or lymphadenopathy. Normal thyroid. CARDIOVASCULAR: Regular rate and rhythm. No murmurs, gallops, or rubs. RESPIRATORY: Breath sounds clear equal bilaterally. No crackles or wheezes. No accessory muscle use. GASTROINTESTINAL: Abdomen soft, non-tender, nondistended, normal active bowel sounds MUSCULOSKELETAL: No cyanosis, or edema. NEURO: CN II-XII grossly intact, no focal deficits, no slurring of speech Results - Labs CBC & Chem 7: 05/26/18 06:18 05/26/18 06:18 Laboratory Results - last 24 hr 05/25/18 05/26/18 05/26/18 19:40 06:18 06:18 WBC 4.9 RBC 3.93 L Hgb 11.5 L Hct 34.6 L MCV 88.1 MCH 29.2 MCHC 33.1 RDW 14.0 Plt Count 257 MPV 7.9 Neut % (Auto) 44.3 Lymph % (Auto) 39.4 [place] % (Auto) 8.7 H Eos % (Auto) 6.6 H Baso % (Auto) 1.0 Neut # (Auto) 2.2 Lymph # (Auto) 1.9 [place] # (Auto) 0.4 Eos # (Auto) 0.3 Baso # (Auto) 0.0 WBC Differential . Differential Comment Auto diff final Sodium 145 Potassium 4.2 Chloride 107 Carbon Dioxide 28.4 Anion Gap 10 BUN 9 Creatinine 0.63 Estimated GFR Greater than 89 Random Glucose 104 Calcium 8.3 L Total Creatine Kinase 129 TSH 5.780 H Urine Color Straw Urine Clarity Clear Urine pH 5.0 Ur Specific [place] 1.003 Urine Protein Negative Urine Glucose (UA) Negative Urine Ketones Negative Urine Occult Blood Small H Urine Nitrate Negative Urine Bilirubin Negative Urine Urobilinogen Less than 2 Ur Leukocyte Esterase Negative Urine RBC Less than 1 Urine WBC Less than 1 Ur Squamous Epith Cells <1 Micro UA Comment Culture not ind Ur Microscopic Review Not Reportable Urine Culture Comments Culture not ind Microbiology 05/24/18 14:20 Abscess - Breast Gram Stain - Final 05/24/18 14:20 Abscess - Breast Wound Culture - Preliminary S. aureus MRSA 05/24/18 14:20 Blood - Peripheral Aerobic Blood Culture - Preliminary No growth in 2 days 05/24/18 14:20 Blood - Peripheral Anaerobic Blood Culture - Preliminary No growth in 2 days 05/24/18 14:30 Blood - Peripheral Aerobic Blood Culture - Preliminary No growth in 2 days 05/24/18 14:30 Blood - Peripheral Anaerobic Blood Culture - Preliminary No growth in 2 days Assessment and Plan - Plan Recurrent right breast infection, complex MRSA is diagnosed and has been treated with multiple antibiotics including daptomycin, vancomycin, cephalosporins, minocycline, Bactrim There is a history of spillage of silicone into her breast and chest wall, consider harbored foreign body as source of recurrent infection Infectious disease recommends Cubicin instead of vancomycin, continue Zosyn Infectious disease also suspects sponge size disparity and wound VAC placement MRI of chest wall ordered today, results pending Appreciate infectious disease consult Plastic surgery consult pending Chronic back pain History of back surgeries Continue Flexeril and Valium, home dose hydrocodone added DVT Prophylaxis Lovenox
[2018-05-26] MEDS ORDERED: Gadobutrol PF 7.5 MMOL/7.5 ML Vial (for RAD) IV.SIG ONE (18:33)
[2018-05-26] MEDS: Enoxaparin Inj 40 MG/0.4 ML Syringe SQ SCH (21:01)
--- NOTE | 2018-05-26 21:51 | MR ---
EXAM DATE: 05/26/2018 6:44 PM EDT AGE/SEX: 57 years / Female INDICATIONS: . Right anterior soft tissue defect from ruptured silicone implant. CLINICAL DATA: This is the patient's initial encounter. Patient reports that signs and symptoms have been present for 4 - 6 days and indicates a pain score of 7/10. MEDICAL/SURGICAL HISTORY: Hypertension. Fusion, cervical. Fusion, lumbar. Breast augmentation . Breast augmentation, removal, bilateral. COMPARISON: [facility], MR BREAST, BILATERAL, 03/02/2018. . TECHNIQUE: Multiplanar, multisequence MRI examination was performed without contrast and after the i ntravenous administration of 14 ml Gadavist (gadobutrol) contrast as a single exam dose. FINDINGS: The previously seen implant has been removed. There is a defect in the anterior portion of the patien t's right chest postsurgical change without evidence for focal abscess. There is indistinctness of th e subcutaneous tissue particularly near the chest wall and pectoralis muscle postsurgical change. CONCLUSION: 1. Removal of previously seen implant and postsurgical changes with soft tissue defect at the operat alejandro site. No evidence for abscess. Electronically signed by: Manjinder Cannon MD 05/26/2018 7:05 PM EDT
[2018-05-27] MEDS: Piperacil/Tazo 4.5 GM Premix 4.5 GM/100 ML BAG IV.SIG SCH ×2 (03:15→14:51)
[2018-05-27] MEDS: DESVENLAFAXINE PO SCH (10:16)
[2018-05-27] MEDS: [UNRECOGNIZED DRUG - OTHER] PO SCH (10:16)
[2018-05-27] MEDS: DAPTOmycin Inj 900 MG in Sodium Chlor 0.9% Inj 100 ML IV.SIG SCH (11:30)
--- NOTE | 2018-05-27 14:01 | P.PNIM ---
Subjective Interval history: Patient has no new complaints today. She is eager to get a surgical opinion regarding silicone retained following her old breast implant rupture. Physical Exam Vital signs: Vital Signs 05/26/18 16:00 05/26/18 16:16 05/26/18 20:00 Temperature 98.9 F 97.9 F Pulse Rate 82 109 H 86 Respiratory Rate 18 20 Blood Pressure 157/96 H 112/67 Pulse Oximetry 94 L 94 L 05/27/18 00:00 05/27/18 04:00 05/27/18 08:00 Temperature 97.8 F 97.9 F 98.0 F Pulse Rate 90 90 85 Respiratory Rate 18 18 18 Blood Pressure 111/57 L 134/80 141/76 H Pulse Oximetry 94 L 96 94 L Intake & Output 05/26/18 05/27/18 05/27/18 18:59 06:59 18:59 Intake Total 820 / 820 820 / 820 100 / 100 Output Total 2650 / 2650 1800 / 1800 Balance -1830 / -1830 -980 / -980 100 / 100 Weight 139.7 kg Intake: IV 100 / 100 100 / 100 100 / 100 Cubicin Inj 900 MG In NS Inj 100 / 100 100 / 100 100 ML @ 200 mls/hr IV.SIG Q24H DEEP Rx#:[id number] Zosyn 4.5 GM Premix 4.5 gm In 100 / 100 100 ml @ 200 mls/hr IV.SIG Q12H DEEP Rx#:[id number] Oral 720 / 720 720 / 720 Output: Urine 2650 / 2650 1800 / 1800 Other: Date of Last Bowel Movement 05/25/18 Narrative: GENERAL: AAOx3, no acute distress, obese SKIN: Warm and dry. No rashes, 5 cm tunneling skin infection on right breast under gauze HEAD: Atruamtic, normocephalic. EYES: No scleral icterus. No injection or drainage. ENT: Moist mucous membranes, patent nares, no erythema of oropharynx. NECK: Supple, trachea midline. No JVD or lymphadenopathy. Normal thyroid. CARDIOVASCULAR: Regular rate and rhythm. No murmurs, gallops, or rubs. RESPIRATORY: Breath sounds clear equal bilaterally. No crackles or wheezes. No accessory muscle use. GASTROINTESTINAL: Abdomen soft, non-tender, nondistended, normal active bowel sounds MUSCULOSKELETAL: No cyanosis, or edema. NEURO: CN II-XII grossly intact, no focal deficits, no slurring of speech Results - Labs CBC & Chem 7: 05/26/18 06:18 05/26/18 06:18 Microbiology 05/24/18 14:20 Blood - Peripheral Aerobic Blood Culture - Preliminary No growth in 3 days 05/24/18 14:20 Blood - Peripheral Anaerobic Blood Culture - Preliminary No growth in 3 days 05/24/18 14:30 Blood - Peripheral Aerobic Blood Culture - Preliminary No growth in 3 days 05/24/18 14:30 Blood - Peripheral Anaerobic Blood Culture - Preliminary No growth in 3 days 05/24/18 14:20 Abscess - Breast Gram Stain - Final 05/24/18 14:20 Abscess - Breast Wound Culture - Final S. aureus MRSA - Imaging Impressions Chest MRI 05/26/18 00:00 CONCLUSION: 1. Removal of previously seen implant and postsurgical changes with soft tissue defect at the operative site. No evidence for abscess. Assessment and Plan - Plan Recurrent right breast infection, complex MRSA is diagnosed and has been treated with multiple antibiotics including daptomycin, vancomycin, cephalosporins, minocycline, Bactrim There is a history of spillage of silicone into her breast and chest wall, consider harbored foreign body as source of recurrent infection Infectious disease also suspects sponge size disparity and wound VAC placement MRI provided no new information regarding retained silicone evident in the right pectoralis and fatty tissue layers Continue daptomycin IV Appreciate infectious disease consult Plastic surgery consult pending Chronic back pain History of back surgeries Continue Flexeril and Valium, home dose hydrocodone added DVT Prophylaxis Lovenox
[2018-05-27] MEDS: Enoxaparin Inj 40 MG/0.4 ML Syringe SQ SCH (21:31)
[2018-05-28] MEDS: Piperacil/Tazo 4.5 GM Premix 4.5 GM/100 ML BAG IV.SIG SCH (03:56)
[2018-05-28] MEDS: DESVENLAFAXINE PO SCH (08:08)
[2018-05-28] MEDS: [UNRECOGNIZED DRUG - OTHER] PO SCH (08:08)
[2018-05-28] MEDS: DAPTOmycin Inj 900 MG in Sodium Chlor 0.9% Inj 100 ML IV.SIG SCH (11:27)
--- NOTE | 2018-05-28 14:16 | P.PNID ---
Subjective Remarks: Patient is a 57-year-old female with complicated history on her right chest wall , presented to the hospital for further evaluation of fevers and generalized weakness. Patient has had breast surgery back in the , and at that time she had bilateral breast reduction and augmentation with silicone implant. She has done fairly well and has not had any problem until January of this year during the Day weekend when she noticed a lump on her right chest. She saw her primary care physician and an ultrasound and mammogram was done, and it showed leaking of her silicone implant which was severe on the right, and the leak on her left breast implant had stayed within the capsule. She was referred to a plastic surgeon, and she was seen around February 22, and surgery was done on March 07 on an outpatient basis. She had removal of both breast implants, and apparently the procedure on the right breast was quite difficult because the silicone had gone to multiple areas on her right chest wall into the muscle, and some tracking laterally and into the back. There was some mention that there could be a possibility that some of the silicone was not removed. Around March 19 patient developed chills, and she called her surgeon and she was started on Bactrim. The chills got better but she was not improving so she was admitted at [facility] on March 20. She underwent surgery, and had removal of both breast implants, and there was a culture done that grew MRSA , and fungal and AFB cultures were negative at that time. She was discharged with a PICC line on March 25 and was given IV vancomycin until April 03. During that hospitalization, the wound on her right chest wall was left open and she had a wound VAC that gets change Monday and Saturdays. Patient was seen in follow-up by ID, and on April 03 after she finished her vancomycin she was started on minocycline. She was apparently doing okay up until April 12 when she had recurrent fever and chills. She got readmitted to the hospital and had a fever of 103 and she had tachycardia. She had blood cultures and urine culture which were negative. And there was a fluid culture from the right chest wound that also came back negative. The patient stated that the wound culture was obtained after she had been in the hospital for 2 days and receiving IV antibiotics. This time the patient was sent home on [place], and she completed her IV antibiotics on May 14. Patient was seen in follow-up by ID, and May 15 she was put on Bactrim and minocycline. Patient still has a wound VAC in place, and the wound was getting smaller but the patient was told that the tunneling seems to be getting deeper. On May 22 she started developing weakness, and soon after that she has had fevers. She saw her primary care physician and had some blood cultures done. She continues to have her symptoms so this time she presented here at [place] for further evaluation and treatment. Since admission, highest temperature has been 102.2. Her WBC is 12.1. Sed rate is 40. CRP 12.10. CT of the chest did not show any fluid collections. Patient denies any respiratory complaint. No vomiting or diarrhea. She denies any urinary complaints. She has not had any rash or itching. Infectious disease consultation has been requested to assist with evaluation and treatment of recurrent infection on her right chest. 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 Obese H/O left knee surgery History of neck surgery Hx of bilateral breast reduction surgery Hx of breast augmentation Total knee replacement status Allergies/Adverse Reactions: Allergies oxycodone [From Percocet] Allergy (Intermediate, Verified 05/24/18 23:24) Insomnia Objective Vital Signs 05/27/18 16:00 05/27/18 20:00 05/28/18 00:00 Temperature 97.9 F 97.9 F 97.8 F Pulse Rate 90 87 82 Respiratory Rate 19 18 18 Blood Pressure 112/71 112/57 L 139/69 Pulse Oximetry 97 94 L 97 05/28/18 04:00 05/28/18 08:00 05/28/18 12:00 Temperature 98.4 F 98.1 F 98.2 F Pulse Rate 79 75 87 Respiratory Rate 18 17 17 Blood Pressure 106/70 108/66 120/71 Pulse Oximetry 94 L 92 L 93 L Intake & Output 05/27/18 05/28/18 05/28/18 18:59 06:59 18:59 Intake Total 860 / 860 640 / 640 100 / 100 Balance 860 / 860 640 / 640 100 / 100 Weight 139.4 kg Intake: IV 200 / 200 100 / 100 100 / 100 Cubicin Inj 900 MG In NS Inj 100 / 100 100 / 100 100 ML @ 200 mls/hr IV.SIG Q24H DEEP Rx#:[id number] Zosyn 4.5 GM Premix 4.5 gm In 100 / 100 100 / 100 100 ml @ 200 mls/hr IV.SIG Q12H DEEP Rx#:[id number] Oral 660 / 660 540 / 540 Other: # Voids 4 2 Date of Last Bowel Movement 05/25/18 05/24/18 14:20 Blood - Peripheral Aerobic Blood Culture - Preliminary No growth in 4 days 05/24/18 14:20 Blood - Peripheral Anaerobic Blood Culture - Preliminary No growth in 4 days 05/24/18 14:30 Blood - Peripheral Aerobic Blood Culture - Preliminary No growth in 4 days 05/24/18 14:30 Blood - Peripheral Anaerobic Blood Culture - Preliminary No growth in 4 days 05/24/18 14:20 Abscess - Breast Gram Stain - Final 05/24/18 14:20 Abscess - Breast Wound Culture - Final S. aureus MRSA Imaging: ITS Impressions Chest CT 05/24/18 15:12 CONCLUSION: 1. Soft tissue defect at the right lateral chest extending to the pectoralis muscle with surrounding induration. Focal fluid collection is not seen. 2. Hepatic steatosis. Chest MRI 05/26/18 00:00 CONCLUSION: 1. Removal of previously seen implant and postsurgical changes with soft tissue defect at the operative site. No evidence for abscess. Physical Exam: GENERAL: awake and alert, not in respiratory distress. SKIN: Cool and dry. No generalized rash HEAD: Atraumatic. Normocephalic. No temporal wasting, or tenderness. EYES: [place] conjunctiva. No petechia or hemorrhage. No scleral icterus. No injection or drainage. EARS, NOSE AND THROAT: Mucous membranes pink and moist. No oral lesions noted. NECK: Trachea midline. Supple and not tender, no meningeal signs CARDIOVASCULAR: Regular rate and rhythm. No murmurs, rubs or gallops heard RESPIRATORY: Clear to auscultation. No rales, wheezing or rhonchi. Decreased breath sounds at the bases BREAST: L breast has well healed incisions. R breast - has well healed incision except for about 3 inch that has a wound vac in place. There is no erythema or induration of skin noted on her R chest wall ABDOMEN: Soft, obese, non-tender, nondistended. Bowel sounds present and normoactive. No guarding. No rebound. EXTREMITIES: No clubbing, cyanosis, or edema.No joint effusion, has good ROM. No calf tenderness. Well perfused and warm. NEUROLOGICAL: Non-focal. PSYCHIATRIC: Normal affect, calm and cooperative. LINE: No evidence of infection Assessment and Plan - Plan Impression Possible sepsis on admission, better R chest wall wound infection recurrent - has wound vac in place - C/S MRSA Hx silicone breast implants leak, S/P surgery and removal of implants and silicone leak March 07, 2018 - subsequent infection MRSA, S/P removal of new bilateral breast implants March 20, 2018 Recommendation Continue Cubicin Stop Zosyn Plastics surgery to see ?change to wet to dry for short time, the back to wound vac Will give another course of IV Abx - 6 weeks - have her fup with Dr Gandara Needs to have good follow-up of for her wound Monitor progress D/W Dr Brumfield ([facility]) Explained plan to patient and , and answered all their questions at length (30-40 minutes)
--- NOTE | 2018-05-28 17:14 | P.PNIM ---
Subjective Interval history: Patient has a number of questions today regarding her treatment options. She is no longer in pain, states her heart rate has returned to her norm in the 70s which she feels is indicative that the infection is abating. Physical Exam Vital signs: Vital Signs 05/27/18 20:00 05/28/18 00:00 05/28/18 04:00 Temperature 97.9 F 97.8 F 98.4 F Pulse Rate 87 82 79 Respiratory Rate 18 18 18 Blood Pressure 112/57 L 139/69 106/70 Pulse Oximetry 94 L 97 94 L 05/28/18 08:00 05/28/18 12:00 05/28/18 16:00 Temperature 98.1 F 98.2 F Pulse Rate 75 87 93 H Respiratory Rate 17 17 Blood Pressure 108/66 120/71 Pulse Oximetry 92 L 93 L Intake & Output 05/27/18 05/28/18 05/28/18 18:59 06:59 18:59 Intake Total 860 / 860 640 / 640 100 / 100 Balance 860 / 860 640 / 640 100 / 100 Weight 139.4 kg Intake: IV 200 / 200 100 / 100 100 / 100 Cubicin Inj 900 MG In NS Inj 100 / 100 100 / 100 100 ML @ 200 mls/hr IV.SIG Q24H DEEP Rx#:[id number] Zosyn 4.5 GM Premix 4.5 gm In 100 / 100 100 / 100 100 ml @ 200 mls/hr IV.SIG Q12H DEEP Rx#:[id number] Oral 660 / 660 540 / 540 Other: # Voids 4 2 Date of Last Bowel Movement 05/25/18 Narrative: GENERAL: AAOx3, no acute distress, obese SKIN: Warm and dry. No rashes, 5 cm tunneling skin infection on right breast under wound VAC HEAD: Atruamtic, normocephalic. EYES: No scleral icterus. No injection or drainage. ENT: Moist mucous membranes, patent nares, no erythema of oropharynx. NECK: Supple, trachea midline. No JVD or lymphadenopathy. Normal thyroid. CARDIOVASCULAR: Regular rate and rhythm. No murmurs, gallops, or rubs. RESPIRATORY: Breath sounds clear equal bilaterally. No crackles or wheezes. No accessory muscle use. GASTROINTESTINAL: Abdomen soft, non-tender, nondistended, normal active bowel sounds MUSCULOSKELETAL: No cyanosis, or edema. NEURO: CN II-XII grossly intact, no focal deficits, no slurring of speech Results - Labs CBC & Chem 7: 05/26/18 06:18 05/26/18 06:18 Microbiology 05/24/18 14:20 Blood - Peripheral Aerobic Blood Culture - Preliminary No growth in 4 days 05/24/18 14:20 Blood - Peripheral Anaerobic Blood Culture - Preliminary No growth in 4 days 05/24/18 14:30 Blood - Peripheral Aerobic Blood Culture - Preliminary No growth in 4 days 05/24/18 14:30 Blood - Peripheral Anaerobic Blood Culture - Preliminary No growth in 4 days Assessment and Plan - Plan Recurrent right breast infection, complex MRSA is diagnosed and has been treated with multiple antibiotics including daptomycin, vancomycin, cephalosporins, minocycline, Bactrim There is a history of spillage of silicone into her breast and chest wall area causing multiple silicone granulomas Infectious disease suggest daptomycin and continuation of wound care with wound VAC Continue daptomycin IV Appreciate infectious disease consult Plastic surgery consult Dr. Rasmussen has been available since patient's admission last and I had a chance to speak with him today regarding Mrs. Myers's care. He took the time to explain to me in detail the course of Mrs. Myers's treatment and the complexity of the surgical debridement associated with the rupture of her 30 year old silicone breast implant. He offered to come in first thing tomorrow morning. Mrs. Myers expresses her thanks to Dr. Rasmussen for her hard work on his case and his constant availability, but at this point she would prefer to focus on wound care options. She understands Dr. Rasmussen is retiring and if surgery becomes a necessity she will need to establish with a new plastic surgeon. I appreciate Dr. Rasmussen's timely availability on this holiday and for the detailed information he provided. Chronic back pain History of back surgeries Continue Flexeril and Valium, home dose hydrocodone added DVT Prophylaxis Lovenox Discharge planning Patient will be going home on solo therapy with IV daptomycin. Awaiting consult with Dr. Douglas.
[2018-05-28] MEDS: Enoxaparin Inj 40 MG/0.4 ML Syringe SQ SCH (20:24)
[2018-05-29] MEDS: [UNRECOGNIZED DRUG - OTHER] PO SCH (08:08)
[2018-05-29] MEDS: DESVENLAFAXINE PO SCH (08:08)
[2018-05-29 08:44] LABS: Anion Gap 7 meq/L (5-15); Blood Urea Nitrogen 10 mg/dL (7-18); Calcium 8.1 mg/dL (8.5-10.1); Chloride 108 meq/L (98-107); Glomerular Filtration Rate Greater Than 89 mL/min (>89); Glucose,Random 97 mg/dL (74-106); Potassium 4.2 meq/L (3.5-5.1); Sodium 142 meq/L (136-145)
[2018-05-29 08:54] LABS: Hematocrit 34.8 % (35.0-46.0); Hemoglobin 11.5 gm/dL (11.6-15.3); Mean Corpuscular Hemoglobin 29.2 pg (27.0-34.0); Mean Corpuscular Volume 88.3 fL (80.0-100.0); Mean Platelet Volume 7.8 fL (7.0-11.0); Platelet Count 272 th/mm3 (150-450); Red Blood Count 3.94 mil/mm3 (4.00-5.30); Red Cell Distribution Width 14.1 % (11.6-17.2); White Blood Count 5.3 th/mm3 (4.0-11.0)
--- NOTE | 2018-05-29 09:57 | US ---
EXAM DATE: 05/29/2018 9:48 AM EDT AGE/SEX: 57 years / Female INDICATIONS: Recurring right breast infection. Ruptured silicone implant. CLINICAL DATA: This is the patient's initial encounter. Patient reports that signs and symptoms have been present for 4 - 6 months and indicates a pain score of 0/10. MEDICAL/SURGICAL HISTORY: . Breast augmentation. Breast reduction. MRSA. . Cervical and lumbar fusion. Left knee replacement. COMPARISON: [facility], US BREAST, RIGHT, 02/20/2018. . TECHNIQUE: Real-time ultrasound examination was performed using a high-frequency transducer. Conven tional and compound scanning techniques were used. FINDINGS: Targeted sonogram right breast obtained. Patient has a wound VAC and foam in the right axillary regio n [id number] x 11.8 cm. No fluid collection seen. Echogenic focus in the right breast adjacent to the wound measures 6 x 6 x 13 mm. Shadowing echogenic area in the right axilla measures 8.9 x 5.0 x 2 .5 cm. CONCLUSION: 1. Wound VAC without significant fluid collection. 2. Shadowing echogenic area in the right axilla could be silicone. 3. Echogenic shadowing focus could be calcification or other etiology. Electronically signed by: Nikolay Cooper MD 05/29/2018 9:56 AM EDT
[2018-05-29] MEDS: DAPTOmycin Inj 900 MG in Sodium Chlor 0.9% Inj 100 ML IV.SIG SCH (11:07)
--- NOTE | 2018-05-29 14:09 | P.PNID ---
Subjective Remarks: Patient is a 57-year-old female with complicated history on her right chest wall , presented to the hospital for further evaluation of fevers and generalized weakness. Patient has had breast surgery back in the , and at that time she had bilateral breast reduction and augmentation with silicone implant. She has done fairly well and has not had any problem until January of this year during the Day weekend when she noticed a lump on her right chest. She saw her primary care physician and an ultrasound and mammogram was done, and it showed leaking of her silicone implant which was severe on the right, and the leak on her left breast implant had stayed within the capsule. She was referred to a plastic surgeon, and she was seen around February 22, and surgery was done on March 07 on an outpatient basis. She had removal of both breast implants, and apparently the procedure on the right breast was quite difficult because the silicone had gone to multiple areas on her right chest wall into the muscle, and some tracking laterally and into the back. There was some mention that there could be a possibility that some of the silicone was not removed. Around March 19 patient developed chills, and she called her surgeon and she was started on Bactrim. The chills got better but she was not improving so she was [facility]. She underwent surgery, and had removal of both breast implants, and there was a culture done that grew MRSA , and fungal and AFB cultures were negative at that time. She was discharged with a PICC line on March 25 and was given IV vancomycin until April 03. During that hospitalization, the wound on her right chest wall was left open and she had a wound VAC that gets change Monday and Saturdays. Patient was seen in follow-up by ID, and on April 03 after she finished her vancomycin she was started on minocycline. She was apparently doing okay up until April 12 when she had recurrent fever and chills. She got readmitted to the hospital and had a fever of 103 and she had tachycardia. She had blood cultures and urine culture which were negative. And there was a fluid culture from the right chest wound that also came back negative. The patient stated that the wound culture was obtained after she had been in the hospital for 2 days and receiving IV antibiotics. This time the patient was sent home on [place], and she completed her IV antibiotics on May 14. Patient was seen in follow-up by ID, and May 15 she was put on Bactrim and minocycline. Patient still has a wound VAC in place, and the wound was getting smaller but the patient was told that the tunneling seems to be getting deeper. On May 22 she started developing weakness, and soon after that she has had fevers. She saw her primary care physician and had some blood cultures done. She continues to have her symptoms so this time she presented here at [facility] for further evaluation and treatment. Since admission, highest temperature has been 102.2. Her WBC is 12.1. Sed rate is 40. CRP 12.10. CT of the chest did not show any fluid collections. Patient denies any respiratory complaint. No vomiting or diarrhea. She denies any urinary complaints. She has not had any rash or itching. Infectious disease consultation has been requested to assist with evaluation and treatment of recurrent infection on her right chest. 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 Obese H/O left knee surgery History of neck surgery Hx of bilateral breast reduction surgery Hx of breast augmentation Total knee replacement status Allergies/Adverse Reactions: Allergies oxycodone [From Percocet] Allergy (Intermediate, Verified 05/24/18 23:24) Insomnia Objective Vital Signs 05/28/18 16:00 05/28/18 20:00 05/29/18 00:00 Temperature 97.9 F 98.2 F 97.4 F L Pulse Rate 87 94 H 76 Respiratory Rate 17 18 18 Blood Pressure 126/77 117/65 99/58 L Pulse Oximetry 93 L 96 93 L 05/29/18 04:00 05/29/18 08:00 05/29/18 12:00 Temperature 97.5 F L 97.8 F 97.8 F Pulse Rate 88 81 75 Respiratory Rate 19 20 20 Blood Pressure 97/52 L 127/78 130/74 Pulse Oximetry 92 L 94 L 93 L Intake & Output 05/28/18 05/29/18 05/29/18 18:59 06:59 18:59 Intake Total 1060 / 1060 720 / 720 100 / 100 Output Total 301 / 301 Balance 1060 / 1060 720 / 720 -201 / -201 Weight 138.7 kg Intake: IV 100 / 100 100 / 100 Cubicin Inj 900 MG In NS Inj 100 / 100 100 / 100 100 ML @ 200 mls/hr IV.SIG Q24H DEEP Rx#:[id number] Oral 960 / 960 720 / 720 Output: Urine 301 / 301 Other: # Voids 4 3 Date of Last Bowel Movement 05/25/18 # Bowel Movements 0 05/24/18 14:20 Blood - Peripheral Aerobic Blood Culture - Final No growth in 5 days 05/24/18 14:20 Blood - Peripheral Anaerobic Blood Culture - Final No growth in 5 days 05/24/18 14:30 Blood - Peripheral Aerobic Blood Culture - Final No growth in 5 days 05/24/18 14:30 Blood - Peripheral Anaerobic Blood Culture - Final No growth in 5 days 05/24/18 14:20 Abscess - Breast Gram Stain - Final 05/24/18 14:20 Abscess - Breast Wound Culture - Final S. aureus MRSA Lab - Hematology Results 05/29/18 07:49 WBC 5.3 RBC 3.94 L Hgb 11.5 L Hct 34.8 L MCV 88.3 MCH 29.2 MCHC 33.0 RDW 14.1 Plt Count 272 MPV 7.8 Lab - Chemistry Results 05/29/18 07:49 Sodium 142 Potassium 4.2 Chloride 108 H Carbon Dioxide 27.0 Anion Gap 7 BUN 10 Creatinine 0.54 Estimated GFR Greater than 89 Random Glucose 97 Calcium 8.1 L Imaging: ITS Impressions Chest CT 05/24/18 15:12 CONCLUSION: 1. Soft tissue defect at the right lateral chest extending to the pectoralis muscle with surrounding induration. Focal fluid collection is not seen. 2. Hepatic steatosis. Chest MRI 05/26/18 00:00 CONCLUSION: 1. Removal of previously seen implant and postsurgical changes with soft tissue defect at the operative site. No evidence for abscess. Breast Ultrasound 05/29/18 00:00 CONCLUSION: 1. Wound VAC without significant fluid collection. 2. Shadowing echogenic area in the right axilla could be silicone. 3. Echogenic shadowing focus could be calcification or other etiology. Physical Exam: GENERAL: awake and alert, not in respiratory distress. SKIN: Cool and dry. No generalized rash HEAD: Atraumatic. Normocephalic. No temporal wasting, or tenderness. EYES: [place] conjunctiva. No petechia or hemorrhage. No scleral icterus. No injection or drainage. EARS, NOSE AND THROAT: Mucous membranes pink and moist. No oral lesions noted. NECK: Trachea midline. Supple and not tender, no meningeal signs CARDIOVASCULAR: Regular rate and rhythm. No murmurs, rubs or gallops heard RESPIRATORY: Clear to auscultation. No rales, wheezing or rhonchi. Decreased breath sounds at the bases BREAST: L breast has well healed incisions. R breast - has well healed incision except for about 3 inch that has a wound vac in place. There is no erythema or induration of skin noted on her R chest wall ABDOMEN: Soft, obese, non-tender, nondistended. Bowel sounds present and normoactive. No guarding. No rebound. EXTREMITIES: No clubbing, cyanosis, or edema.No joint effusion, has good ROM. No calf tenderness. Well perfused and warm. NEUROLOGICAL: Non-focal. PSYCHIATRIC: Normal affect, calm and cooperative. LINE: No evidence of infection Wound vac changed by cloth spreader screen printing today - opening is about 3 inches long, undermining is at 12 o'clock position, about 2 inches wide in deepest portion and about 5 inches long, has red granulation tissue seen, no purulence, no odor Assessment and Plan - Plan Impression Possible sepsis on admission, better R chest wall wound infection recurrent - has wound vac in place - C/S MRSA - the initial open wound was fairly large and it has now decreased in size Hx silicone breast implants leak, S/P surgery and removal of implants and silicone leak March 07, 2018 - subsequent infection MRSA, S/P removal of new bilateral breast implants March 20, 2018 Recommendation Continue Cubicin Await plastic surgery opunion - patient and would like to hear if there is any other option to her Rx PICC Will give another course of IV Abx - 4-6 weeks, to decrease bacterial load in the wound and hope to further heal the undermining - have her fup with Dr Gandara Needs to have good follow-up of for her wound - patient will make appointment with Dr Tan Monitor progress Explained plan to patient and
--- NOTE | 2018-05-29 15:50 | P.PNWCN ---
Wound Care Nurse Consult Description: Wound consult ordered by for wound management Communicated with: Sonali SILVESTRE, . Recommendation: 1. Please maintain functional seal to Veraflow wound vac 2. If seal is not maintain for a maximum of 2 hours please remove sponge and apply moist to dry dressing secure with dry dressing. 3. Patient may transfer to home Vac upon discharge. Additional information: Patient was seen today by writer producer on [address] for wound management.Patient alert and oriented x4 sitting up in bed in no acute distress. present at bedside as well as patient .Wound vac removed from right under breast wound cleansed with normal saline pat dry .Patient has full thickness surgical wound that measures ~4.0cm x ~8.0cm x 0.6cm moist cavity located from ~11-2 O' clock with max depth being @ 12 O'clock @ 12cm.Wound base was able to be visualize is 50% beefy red granular tissue 50% moist pink/red nongranular tissue .mild erythema noted to periwound circumferentially.moderate serosanguineous exudate noted with out odor .Wound edges are well defined.Wound does not display any signs or symptoms of infection at this time.Veraflo wound vac applied signed and dated. Wound/Pressure Injury - Patient Status Premedicated for Pain Prior to Dressing Change: No - Wound Right Breast Wound Assessment: Ongoing Wound Type: Traumatic Wound Is This a Chronic Wound: Yes Requested from Provider a Wound Care Consult: No (Aleida SILVESTRE,[facility] seen 05/29) Length: 4.0 Width: 8.0 Depth: 0.6 Wound Bed Appearance: [place], Red, Tunneling/Undermining (11-2 max depth @ 12 O' clock being ~12cm) Wound Bed Appearance: Wound bed is ~50% beefy red granular tissue and ~50% moist red/pink non granular tissue Surrounding Tissue Appearance: [place] Surrounding Tissue Temperature: Cool Drainage Description: Serosanguinous Drainage Amount: Moderate Drainage Odor: No Odor Dressing Status: Changed Cleansing Solution: Saline Wound Packing Type: Woundvac Sponge Primary Dressing: Negative Pressure Wound Dressing Wound Dressing Change Date: 05/29/18 Wound Vac - Wound Vac Right Breast Pressure Setting (mmHg): 125 Mode Setting: Continuous Drainage Description: Serosanguinous Foam type: Other (Gutierrez Veraflow) Incision - Patient Status Premedicated for Pain Prior to Dressing Change: No - Incision Right Breast Incision Type: Incision
[2018-05-29] MEDS ORDERED: Sodium Hypochlorite 0.125% Top Soln 500 ML Bottle IRRIGATION ONE (16:30)
[2018-05-29] MEDS ORDERED: Heparin Central Flush 100 UNIT/ML 5 ML Vial IV.FLUSH PRN (17:11)
--- NOTE | 2018-05-29 18:22 | P.PNIM ---
Subjective Interval history: Patient received her PICC line today and had the chance to speak with 2 different plastic surgeons regarding her open wound. She is satisfied with her care, has a plan of action now to visit with plastic breath specialist in [place] and will be planning to go home with IV antibiotics tomorrow. Physical Exam Vital signs: Vital Signs 05/28/18 20:00 05/29/18 00:00 05/29/18 04:00 Temperature 98.2 F 97.4 F L 97.5 F L Pulse Rate 94 H 76 88 Respiratory Rate 18 18 19 Blood Pressure 117/65 99/58 L 97/52 L Pulse Oximetry 96 93 L 92 L 05/29/18 08:00 05/29/18 12:00 05/29/18 16:00 Temperature 97.8 F 97.8 F 97.9 F Pulse Rate 81 117 H 96 H Respiratory Rate 20 20 20 Blood Pressure 127/78 130/74 141/81 H Pulse Oximetry 94 L 93 L 96 Intake & Output 05/28/18 05/29/18 05/29/18 18:59 06:59 18:59 Intake Total 1060 / 1060 720 / 720 100 / 100 Output Total 301 / 301 Balance 1060 / 1060 720 / 720 -201 / -201 Weight 138.7 kg Intake: IV 100 / 100 100 / 100 Cubicin Inj 900 MG In NS Inj 100 / 100 100 / 100 100 ML @ 200 mls/hr IV.SIG Q24H DEEP Rx#:[id number] Oral 960 / 960 720 / 720 Output: Urine 301 / 301 Other: Mode Setting Right Breast Continuous # Voids 4 3 Date of Last Bowel Movement 05/25/18 # Bowel Movements 0 Narrative: GENERAL: AAOx3, no acute distress, obese SKIN: Warm and dry. No rashes, 5 cm tunneling skin infection on right breast under wound VAC HEAD: [place], normocephalic. EYES: No scleral icterus. No injection or drainage. ENT: Moist mucous membranes, patent nares, no erythema of oropharynx. NECK: Supple, trachea midline. No JVD or lymphadenopathy. Normal thyroid. CARDIOVASCULAR: Regular rate and rhythm. No murmurs, gallops, or rubs. RESPIRATORY: Breath sounds clear equal bilaterally. No crackles or wheezes. No accessory muscle use. GASTROINTESTINAL: Abdomen soft, non-tender, nondistended, normal active bowel sounds MUSCULOSKELETAL: No cyanosis, or edema. NEURO: CN II-XII grossly intact, no focal deficits, no slurring of speech Results - Labs CBC & Chem 7: 05/29/18 07:49 05/29/18 07:49 Laboratory Results - last 24 hr 05/29/18 05/29/18 07:49 07:49 WBC 5.3 RBC 3.94 L Hgb 11.5 L Hct 34.8 L MCV 88.3 MCH 29.2 MCHC 33.0 RDW 14.1 Plt Count 272 MPV 7.8 Sodium 142 Potassium 4.2 Chloride 108 H Carbon Dioxide 27.0 Anion Gap 7 BUN 10 Creatinine 0.54 Estimated GFR Greater than 89 Random Glucose 97 Calcium 8.1 L Microbiology 05/24/18 14:20 Blood - Peripheral Aerobic Blood Culture - Final No growth in 5 days 05/24/18 14:20 Blood - Peripheral Anaerobic Blood Culture - Final No growth in 5 days 05/24/18 14:30 Blood - Peripheral Aerobic Blood Culture - Final No growth in 5 days 05/24/18 14:30 Blood - Peripheral Anaerobic Blood Culture - Final No growth in 5 days - Imaging Impressions Breast Ultrasound 05/29/18 00:00 CONCLUSION: 1. Wound VAC without significant fluid collection. 2. Shadowing echogenic area in the right axilla could be silicone. 3. Echogenic shadowing focus could be calcification or other etiology. Assessment and Plan - Plan Recurrent right breast infection, complex MRSA is diagnosed and has been treated with multiple antibiotics including daptomycin, vancomycin, cephalosporins, minocycline, Bactrim There is a history of spillage of silicone into her breast and chest wall area causing multiple silicone granulomas Infectious disease suggest daptomycin and continuation of wound care with wound VAC Patient met with Dr. Douglas and Dr. Muniz today and obtained an outpatient treatment approach with recommendation of breast to discuss further care Dr. Rasmussen has been available by phone since last but patient politely declined a visit because she is here for infection and a second opinion, not surgery Continuing daptomycin, will request orders for outpatient IV infusion Appreciate infectious disease consult Appreciate plastic surgery opinion by Dr. Douglas and Dr. Muniz Chronic back pain History of back surgeries Continue Flexeril and Valium, home dose hydrocodone added DVT Prophylaxis Lovenox Discharge planning Patient will need orders from infectious disease for length of treatment plan with IV daptomycin. She will be following up with plastic surgery breast specialist in [place] to discuss further care Plan for discharge tomorrow once cleared by infectious disease.
--- NOTE | 2018-05-29 19:37 | MB ---
cc: Kenya Douglas MD DATE: 05/29/2018 CONSULTING PHYSICIAN: Dr. Aron Brumfield REASON FOR CONSULTATION: Recurrent infection of the right breast post reconstructive surgery. HISTORY OF PRESENT ILLNESS: The patient is a 57-year-old female who was admitted to the hospital on 05/24/2018. The patient, who is a patient of Dr. Eliezer Rasmussen received silicone breast implants in 1981. On 03/07/2018, she had a revision following rupture of the silicone implants. The left silicone implant remained encapsulated, but the right one spilled out silicone. On 03/20/2018, the site became infected and the saline implants, which had been placed earlier on 03/07/2018 were removed. The patient was on IV antibiotics until 04/03/2018. The IV antibiotics were stopped on 05/14/2018. Since that the patient has received vancomycin, Ceftaroline, daptomycin, minocycline, Bactrim DS but the infection kept recurring. The patient was admitted with possible sepsis for treatment. A culture of the wound did grow out Staphylococcus aureus. The temperature on admission was 102.6 with a pulse well over 100, which did spike to close to 150. The patient had a wound VAC, which has been continued. Her white count on admission was 12.1 and today it is 5.3. She had elevated neutrophils at 8.1 thousand on admission and today was 2.2 thousand with a percentage going from 66.6 down to 44.3. Sedimentation rate on 05/24/2018 was 40. Her blood sugar on admission was 105. Her fasting blood sugars have been between [address] scan performed on 05/24/2018 revealed a soft tissue defect of the right lateral chest wall extending to the pectoralis muscle with surrounding induration. She also had some hepatic steatosis. A focal fluid collection was not seen at that time. A chest MRI performed on 05/26/2018 showed that there was removal of the previously seen implant with postsurgical changes and a soft tissue defect at the operative site, but no evidence of an abscess and breast ultrasound showed a wound VAC in place without significant fluid collection. There was some shadowing of an echogenic area in the right axilla, which could be silicone. Also, an echogenic shadowing focus could be calcification or other etiology. The patient was admitted on 05/24/2018 and a consult was placed with Dr. Artem Rasmussen who indicated that he does not come to this hospital anymore and the patient and her were actually seeking a second opinion regarding treatment of this problem. The patient was then seen by myself and Dr. Muniz. PAST MEDICAL HISTORY: The patient has a history of Achilles tendinitis, cervical vertebral fusion, depression, fusion of the lumbar spine, and obesity. PAST SURGICAL HISTORY: As above plus left knee surgery and neck surgery. FAMILY HISTORY: Significant for hypertension. SOCIAL HISTORY: The patient is a former smoker and she rarely consumes alcohol. PHYSICAL EXAMINATION: GENERAL: The patient is lying comfortably in bed. VITAL SIGNS: Temperature is 97.9, pulse of 96, respirations 20, blood pressure is 141/81 and her pulse oximetry is 96% on room air. The patient is lying comfortably in bed. HEENT: Pupils are equal, round and reactive to light. Mouth is clear. NECK: Supple without masses. EXTREMITIES: There is a 6 cm wound on the right side of the chest, which does tunnel. There does appear to be a capsule inside. There does not appear to be significant surrounding erythema. There does not appear to be an odor. The remainder of the examination is within normal limits. IMPRESSION: The patient appears to have an infection with methicillin-resistant Staphylococcus aureus in a previously operated area where the implants had been done to correct a noncosmetic problem according to the patient. PLAN: The patient is advised that we feel that she does require extensive surgery with probable removal of the capsule, any residual silicone and any other involved tissues with possible need for a flap in order to adequately close the wound and prevent further infection. She is advised that she should go see a surgeon with more experience and is given the name of several doctors in the [place] area. She is also advised that she might consider a consult at the [facility] in [place]. The was given this information and he will contact the names and phone numbers that we were given in order to facilitate the proper treatment for his . The patient's was very happy that we gave him this information. In the meantime, she will continue with the wound VAC as an outpatient. Kenya Douglas MD LHB/ct , 06:26 PM , 06:38 PM
[2018-05-29] MEDS: Enoxaparin Inj 40 MG/0.4 ML Syringe SQ SCH (21:21)
[2018-05-30 01:05] VITALS: RESP 18
--- NOTE | 2018-05-30 08:19 | P.DCO ---
Post Hospital Infusion Therapy Patient Weight: 137.8 kg - Administer Medication Daptomycin Additional Dosing Instructions: Daptomycin 900 mg IV daily Stop Treatment: 07/06/18 - Additional Information Venous Access: PICC Line Additional Instructions: [x] Peripheral flush and dressing changes per protocol [x] Implanted port and central online merchandising specialist: * Implanted port: 10 ml Normal Saline followed by 5 ml Heparin 100 units/ml Heparin flush after each use and monthly to maintain. [] May leave port accessed during therapy. [] May leave peripheral site accessed for duration of therapy. [x] If patient has SOB or respiratory distress, check oxygen saturation. If less than 90% or clinical signs of respiratory distress, administer oxygen at 2 L/min. via nasal cannula and notify physician. [x] Anaphylaxis/Reaction orders: * Stop infusion. * Keep IV line open with saline flush. * Notify physician. * Monitor vital signs every 15 minutes until symptoms resolve. * Check Oxygen saturation; Oxygen at 2 L/min. via nasal cannula if less than 90% or clinical signs of respiratory distress. * Administer diphenhydramine (Benadryl) 25 mg IV STAT, (unless patient has received as pre-med). May repeat once, if necessary. * Solu-Cortef 250 mg IVP over 30-60 seconds, use 100 mg vials for each dissolution. * Epinephrine (1mg/1 ml) 0.3 mg subcutaneously or IVP now with any signs of respiratory distress. * Check with physician for new additional pre-med orders if patient is re- challenged or re-treated. [x] May remove PICC line when treatment complete. [x] If the patient is admitted to the hospital, the ED, or transferred via [facility] , complete transfer form including medication reconciliation order sheet. Weekly Labs: CBC w/diff, Creatinine, Serum CK Levels (Labs every Monday - copy to me and Dr Gandara) Allergies oxycodone [From Percocet] Allergy (Intermediate, Verified 05/24/18 23:24) Insomnia
--- NOTE | 2018-05-30 08:27 | P.PNID ---
Subjective Remarks: Patient is a 57-year-old female with complicated history on her right chest wall , presented to the hospital for further evaluation of fevers and generalized weakness. Patient has had breast surgery back in the , and at that time she had bilateral breast reduction and augmentation with silicone implant. She has done fairly well and has not had any problem until January of this year during the Day weekend when she noticed a lump on her right chest. She saw her primary care physician and an ultrasound and mammogram was done, and it showed leaking of her silicone implant which was severe on the right, and the leak on her left breast implant had stayed within the capsule. She was referred to a plastic surgeon, and she was seen around February 22, and surgery was done on March 07 on an outpatient basis. She had removal of both breast implants, and apparently the procedure on the right breast was quite difficult because the silicone had gone to multiple areas on her right chest wall into the muscle, and some tracking laterally and into the back. There was some mention that there could be a possibility that some of the silicone was not removed. Around March 19 patient developed chills, and she called her surgeon and she was started on Bactrim. The chills got better but she was not improving so she was admitted at [facility] on March 20. She underwent surgery, and had removal of both breast implants, and there was a culture done that grew MRSA , and fungal and AFB cultures were negative at that time. She was discharged with a PICC line on March 25 and was given IV vancomycin until April 03. During that hospitalization, the wound on her right chest wall was left open and she had a wound VAC that gets change Monday and Saturdays. Patient was seen in follow-up by ID, and on April 03 after she finished her vancomycin she was started on minocycline. She was apparently doing okay up until April 12 when she had recurrent fever and chills. She got readmitted to the hospital and had a fever of 103 and she had tachycardia. She had blood cultures and urine culture which were negative. And there was a fluid culture from the right chest wound that also came back negative. The patient stated that the wound culture was obtained after she had been in the hospital for 2 days and receiving IV antibiotics. This time the patient was sent home on [place], and she completed her IV antibiotics on May 14. Patient was seen in follow-up by ID, and May 15 she was put on Bactrim and minocycline. Patient still has a wound VAC in place, and the wound was getting smaller but the patient was told that the tunneling seems to be getting deeper. On May 22 she started developing weakness, and soon after that she has had fevers. She saw her primary care physician and had some blood cultures done. She continues to have her symptoms so this time she presented here at [place] for further evaluation and treatment. Since admission, highest temperature has been 102.2. Her WBC is 12.1. Sed rate is 40. CRP 12.10. CT of the chest did not show any fluid collections. Patient denies any respiratory complaint. No vomiting or diarrhea. She denies any urinary complaints. She has not had any rash or itching. Infectious disease consultation has been requested to assist with evaluation and treatment of recurrent infection on her right chest. 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 Obese H/O left knee surgery History of neck surgery Hx of bilateral breast reduction surgery Hx of breast augmentation Total knee replacement status Allergies/Adverse Reactions: Allergies oxycodone [From Percocet] Allergy (Intermediate, Verified 05/24/18 23:24) Insomnia Objective Vital Signs 05/29/18 12:00 05/29/18 16:00 05/29/18 20:00 Temperature 97.8 F 97.9 F 97.8 F Pulse Rate 117 H 96 H 98 H Respiratory Rate 20 20 19 Blood Pressure 130/74 141/81 H 144/91 H Pulse Oximetry 93 L 96 93 L 05/30/18 00:00 05/30/18 04:00 05/30/18 05:14 Temperature 97.7 F 97.7 F Pulse Rate 85 86 83 Respiratory Rate 18 18 Blood Pressure 121/72 132/76 Pulse Oximetry 96 92 L Intake & Output 05/29/18 05/30/18 05/30/18 18:59 06:59 18:59 Intake Total 100 / 100 240 / 240 Output Total 301 / 301 0 / 0 Balance -201 / -201 240 / 240 Weight 137.8 kg 137.8 kg Intake: IV 100 / 100 Cubicin Inj 900 MG In NS Inj 100 / 100 100 ML @ 200 mls/hr IV.SIG Q24H [facility] Rx#:[id number] Oral 240 / 240 Output: Urine 301 / 301 0 / 0 Other: Mode Setting Right Breast Continuous Date of Last Bowel Movement 05/25/18 05/24/18 14:20 Blood - Peripheral Aerobic Blood Culture - Final No growth in 5 days 05/24/18 14:20 Blood - Peripheral Anaerobic Blood Culture - Final No growth in 5 days 05/24/18 14:30 Blood - Peripheral Aerobic Blood Culture - Final No growth in 5 days 05/24/18 14:30 Blood - Peripheral Anaerobic Blood Culture - Final No growth in 5 days 05/24/18 14:20 Abscess - Breast Gram Stain - Final 05/24/18 14:20 Abscess - Breast Wound Culture - Final S. aureus MRSA Lab - Hematology Results 05/29/18 07:49 WBC 5.3 RBC 3.94 L Hgb 11.5 L Hct 34.8 L MCV 88.3 MCH 29.2 MCHC 33.0 RDW 14.1 Plt Count 272 MPV 7.8 Lab - Chemistry Results 05/29/18 07:49 Sodium 142 Potassium 4.2 Chloride 108 H Carbon Dioxide 27.0 Anion Gap 7 BUN 10 Creatinine 0.54 Estimated GFR Greater than 89 Random Glucose 97 Calcium 8.1 L Imaging: ITS Impressions Chest CT 05/24/18 15:12 CONCLUSION: 1. Soft tissue defect at the right lateral chest extending to the pectoralis muscle with surrounding induration. Focal fluid collection is not seen. 2. Hepatic steatosis. Chest MRI 05/26/18 00:00 CONCLUSION: 1. Removal of previously seen implant and postsurgical changes with soft tissue defect at the operative site. No evidence for abscess. Breast Ultrasound 05/29/18 00:00 CONCLUSION: 1. Wound VAC without significant fluid collection. 2. Shadowing echogenic area in the right axilla could be silicone. 3. Echogenic shadowing focus could be calcification or other etiology. Physical Exam: GENERAL: awake and alert, not in respiratory distress. SKIN: Cool and dry. No generalized rash HEAD: Atraumatic. Normocephalic. No temporal wasting, or tenderness. EYES: [place] conjunctiva. No petechia or hemorrhage. No scleral icterus. No injection or drainage. EARS, NOSE AND THROAT: Mucous membranes pink and moist. No oral lesions noted. NECK: Trachea midline. Supple and not tender, no meningeal signs CARDIOVASCULAR: Regular rate and rhythm. No murmurs, rubs or gallops heard RESPIRATORY: Clear to auscultation. No rales, wheezing or rhonchi. Decreased breath sounds at the bases BREAST: L breast has well healed incisions. R breast - has well healed incision except for about 3 inch that has a wound vac in place. There is no erythema or induration of skin noted on her R chest wall ABDOMEN: Soft, obese, non-tender, nondistended. Bowel sounds present and normoactive. No guarding. No rebound. EXTREMITIES: No clubbing, cyanosis, or edema.No joint effusion, has good ROM. No calf tenderness. Well perfused and warm. NEUROLOGICAL: Non-focal. PSYCHIATRIC: Normal affect, calm and cooperative. LINE: No evidence of infection Assessment and Plan (1) Infection of breast, right Status: Acute Code(s): N61.0 - Mastitis without abscess - Plan Impression Possible sepsis on admission, better R chest wall wound infection recurrent - has wound vac in place - C/S MRSA - the initial open wound was fairly large and it has now decreased in size Hx silicone breast implants leak, S/P surgery and removal of implants and silicone leak March 07, 2018 - subsequent infection MRSA, S/P removal of new bilateral breast implants March 20, 2018 Recommendation Continue Cubicin - plan 6 weeks tentative and have her fup with Dr Gandara, and until evaluation by plastic surgery in [place] or [facility] [place] - labs weekly while on IV Abx: CBC, creat and CPK Patient will get opinion from list of surgeons given to her and by plastic surgery here Needs to have good follow-up of for her wound - patient will make appointment with Dr Tan Monitor progress Continue wound vac per plastics OK to D/C from ID standpoint once arrangements made for her IV Abx Explained plan to patient
[2018-05-30] MEDS ORDERED: Heparin Central Flush 100 UNIT/ML 5 ML Vial IV.FLUSH SCH (09:00)
[2018-05-30] MEDS: [UNRECOGNIZED DRUG - OTHER] PO SCH (10:23)
[2018-05-30] MEDS: DESVENLAFAXINE PO SCH (10:23)
--- NOTE | 2018-05-30 13:13 | P.PNIM ---
Subjective Interval history: 9-4 Patient received her PICC line today and had the chance to speak with 2 different plastic surgeons regarding her open wound. She is satisfied with her care, has a plan of action now to visit with plastic BREAST specialist in [place] and will be planning to go home with IV antibiotics tomorrow. 9-5 ANTIBIOTICS ORDERED RESUME WOUND VAC WILL DO FACE TO FACE DC TO HOME TODAY WILL FOLLOW UP WITH PLASTICS IN MODE Physical Exam Vital signs: Vital Signs 05/29/18 16:00 05/29/18 20:00 05/30/18 00:00 Temperature 97.9 F 97.8 F 97.7 F Pulse Rate 96 H 98 H 85 Respiratory Rate 20 19 18 Blood Pressure 141/81 H 144/91 H 121/72 Pulse Oximetry 96 93 L 96 05/30/18 04:00 05/30/18 05:14 05/30/18 08:00 Temperature 97.7 F Pulse Rate 86 83 75 Respiratory Rate 18 Blood Pressure 132/76 Pulse Oximetry 92 L Intake & Output 05/29/18 05/30/18 05/30/18 18:59 06:59 18:59 Intake Total 100 / 100 240 / 240 Output Total 301 / 301 0 / 0 Balance -201 / -201 240 / 240 Weight 137.8 kg 137.8 kg Intake: IV 100 / 100 Cubicin Inj 900 MG In NS Inj 100 / 100 100 ML @ 200 mls/hr IV.SIG Q24H [facility] Rx#:[id number] Oral 240 / 240 Output: Urine 301 / 301 0 / 0 Other: Mode Setting Right Breast Continuous Date of Last Bowel Movement 05/25/18 Narrative: GENERAL: AAOx3, no acute distress, obese SKIN: Warm and dry. No rashes, 5 cm tunneling skin infection on right breast under wound VAC HEAD: Atruam[place], normocephalic. EYES: No scleral icterus. No injection or drainage. ENT: Moist mucous membranes, patent nares, no erythema of oropharynx. NECK: Supple, trachea midline. No JVD or lymphadenopathy. Normal thyroid. CARDIOVASCULAR: Regular rate and rhythm. No murmurs, gallops, or rubs. RESPIRATORY: Breath sounds clear equal bilaterally. No crackles or wheezes. No accessory muscle use. GASTROINTESTINAL: Abdomen soft, non-tender, nondistended, normal active bowel sounds MUSCULOSKELETAL: No cyanosis, or edema. NEURO: CN II-XII grossly intact, no focal deficits, no slurring of speech Results - Labs CBC & Chem 7: 05/29/18 07:49 05/29/18 07:49 Microbiology 05/24/18 14:20 Blood - Peripheral Aerobic Blood Culture - Final No growth in 5 days 05/24/18 14:20 Blood - Peripheral Anaerobic Blood Culture - Final No growth in 5 days 05/24/18 14:30 Blood - Peripheral Aerobic Blood Culture - Final No growth in 5 days 05/24/18 14:30 Blood - Peripheral Anaerobic Blood Culture - Final No growth in 5 days - Imaging Chest CT 05/24/18 15:12 CONCLUSION: 1. Soft tissue defect at the right lateral chest extending to the pectoralis muscle with surrounding induration. Focal fluid collection is not seen. 2. Hepatic steatosis. Chest MRI 05/26/18 00:00 CONCLUSION: 1. Removal of previously seen implant and postsurgical changes with soft tissue defect at the operative site. No evidence for abscess. Breast Ultrasound 05/29/18 00:00 CONCLUSION: 1. Wound VAC without significant fluid collection. 2. Shadowing echogenic area in the right axilla could be silicone. 3. Echogenic shadowing focus could be calcification or other etiology. - Procedures WOUND VAC Assessment and Plan - Plan Recurrent right breast infection, complex MRSA is diagnosed and has been treated with multiple antibiotics including daptomycin, vancomycin, cephalosporins, minocycline, Bactrim There is a history of spillage of silicone into her breast and chest wall area causing multiple silicone granulomas Infectious disease suggest daptomycin and continuation of wound care with wound VAC Patient met with Dr. Douglas and Dr. Muniz today and obtained an outpatient treatment approach with recommendation of breast to discuss further care Dr. Rasmussen has been available by phone since last but patient politely declined a visit because she is here for infection and a second opinion, not surgery Continuing daptomycin, will request orders for outpatient IV infusion Appreciate infectious disease consult Appreciate plastic surgery opinion by Dr. Douglas and Dr. Muniz Chronic back pain History of back surgeries Continue Flexeril and Valium, home dose hydrocodone added DVT Prophylaxis Lovenox Discharge planning Patient will need orders from infectious disease for length of treatment plan with IV daptomycin. She will be following up with plastic surgery breast specialist in [place] to discuss further care Plan for discharge TODAY once cleared by infectious disease. Code Status: FULL CODE Discussed Condition With: RN AND PT AND CM Discharge Planning: DC TO HOME TODAY
--- NOTE | 2018-05-30 13:29 | P.DS ---
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 She has a history of very large breasts which required breast reduction surgery in the 1970s. In 1981 she received silicone breast implants. On March 07 of this year she had a revision surgery following rupture of her silicone implants. The left silicone implant remains encapsulated, but the right silicone implant spelled it silicone contents into breast and chest wall spaces. On March 20 the site became infected and the saline implants were removed. IV antibiotics continued until April 03. On March 31 recurrence of the infection required another round of IV antibiotics. IV antibiotics with daptomycin were stopped on May 14. Since onset she has received vancomycin and ceftaroline, daptomycin, minocycline, Bactrim DS, but the infection keeps recurring. I had a discussion with the patient about the possibility of retained silicone harboring infection, there is a known piece of silicone that is difficult to get to and adhered near her chest wall. Medical records have been obtained from [facility]. She denies any nausea vomiting or diarrhea. She denies any neurological symptoms. She denies any cardiac chest pain, irregular heartbeats, diaphoresis. Patient update on day of discharge: 9-4 Patient received her PICC line today and had the chance to speak with 2 different plastic surgeons regarding her open wound. She is satisfied with her care, has a plan of action now to visit with plastic BREAST specialist in [place] and will be planning to go home with IV antibiotics tomorrow. 9-5 ANTIBIOTICS ORDERED RESUME WOUND VAC WILL DO FACE TO FACE DC TO HOME TODAY WILL FOLLOW UP WITH PLASTICS IN [place] DS: Diagnosis - Discharge Diagnosis (1) Infection of breast, right Status: Acute (2) Sepsis Status: Acute DS: Medications - Discharge Medications Prescriptions: cyclobenzaprine 5 mg PO Q8HR #90 tab daptomycin [Cubicin] 900 mg IV Q24H 37 Days #37 ea desvenlafaxine succinate [Pristiq] 100 mg PO DAILY #30 tab ferrous sulfate [Iron (ferrous sulfate)] 325 mg PO BID #60 tab hydrocodone-acetaminophen 1 tab PO Q4H PRN #40 tab PRN Reason: Pain sennosides [Senna Lax] 17.2 mg PO Q12H PRN #60 tab PRN Reason: Moderate Constipation zinc sulfate 1 tab PO DAILY #30 tab DS: Summary Hospital Course: 57-year-old female with a 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 She has a history of very large breasts which required breast reduction surgery in the 1970s. In 1981 she received silicone breast implants. On March 07 of this year she had a revision surgery following rupture of her silicone implants. The left silicone implant remains encapsulated, but the right silicone implant spelled it silicone contents into breast and chest wall spaces. On March 20 the site became infected and the saline implants were removed. IV antibiotics continued until April 03. On March 31 recurrence of the infection required another round of IV antibiotics. IV antibiotics with daptomycin were stopped on May 14. Since onset she has received vancomycin and ceftaroline, daptomycin, minocycline, Bactrim DS, but the infection keeps recurring. I had a discussion with the patient about the possibility of retained silicone harboring infection, there is a known piece of silicone that is difficult to get to and adhered near her chest wall. Medical records have been obtained from [facility]. She denies any nausea vomiting or diarrhea. She denies any neurological symptoms. She denies any cardiac chest pain, irregular heartbeats, diaphoresis. 9-4 Patient received her PICC line today and had the chance to speak with 2 different plastic surgeons regarding her open wound. She is satisfied with her care, has a plan of action now to visit with plastic BREAST specialist in [place] and will be planning to go home with IV antibiotics tomorrow. 9-5 ANTIBIOTICS ORDERED RESUME WOUND VAC WILL DO FACE TO FACE DC TO HOME TODAY WILL FOLLOW UP WITH PLASTICS IN [place] [employer] Prescription Drug Monitoring Database has been queried and verified prior to prescribing the controlled substance. Acute pain exception. This patient has normal, predicted, physiological, and time limited response to an adverse mechanical stimulus associated with surgery, trauma, or acute illness as described in my notes. There is a lack of alternative treatment options other than to include the prescribed narcotic treatment for this condition. E-FORCSE VISUALIZED NO NARCOTICS SINCE March2017 WILL GIVE PAIN CONTROL FOR ACUTE PAIN EXCEPTION - Time Spent with Patient Total time spent providing and/or coordinating discharge services: Greater than 30 minutes - Quality: VTE Deep Vein Thrombosis/Pulmonary Embolism Present on Admission: No Exam Vital signs: Vital Signs 05/29/18 16:00 05/29/18 20:00 05/30/18 00:00 Temperature 97.9 F 97.8 F 97.7 F Pulse Rate 96 H 98 H 85 Respiratory Rate 20 19 18 Blood Pressure 141/81 H 144/91 H 121/72 Pulse Oximetry 96 93 L 96 05/30/18 04:00 05/30/18 05:14 05/30/18 08:00 Temperature 97.7 F Pulse Rate 86 83 75 Respiratory Rate 18 Blood Pressure 132/76 Pulse Oximetry 92 L Intake & Output 05/29/18 05/30/18 05/30/18 18:59 06:59 18:59 Intake Total 100 / 100 240 / 240 Output Total 301 / 301 0 / 0 Balance -201 / -201 240 / 240 Weight 137.8 kg 137.8 kg Intake: IV 100 / 100 Cubicin Inj 900 MG In NS Inj 100 / 100 100 ML @ 200 mls/hr IV.SIG Q24H DEEP Rx#:[id number] Oral 240 / 240 Output: Urine 301 / 301 0 / 0 Other: Mode Setting Right Breast Continuous Date of Last Bowel Movement 05/25/18 Narrative: GENERAL: AAOx3, no acute distress, obese SKIN: Warm and dry. No rashes, 5 cm tunneling skin infection on right breast under wound VAC HEAD: Atruamtic, normocephalic. EYES: No scleral icterus. No injection or drainage. ENT: Moist mucous membranes, patent nares, no erythema of oropharynx. NECK: Supple, trachea midline. No JVD or lymphadenopathy. Normal thyroid. CARDIOVASCULAR: Regular rate and rhythm. No murmurs, gallops, or rubs. RESPIRATORY: Breath sounds clear equal bilaterally. No crackles or wheezes. No accessory muscle use. GASTROINTESTINAL: Abdomen soft, non-tender, nondistended, normal active bowel sounds MUSCULOSKELETAL: No cyanosis, or edema. NEURO: CN II-XII grossly intact, no focal deficits, no slurring of speech Results Procedures completed during hospitalization: WOUND VAC Completed studies during hospitalization: Laboratory Results WBC 5.3 th/mm3 (4.0-11.0) 05/29/18 07:49 RBC 3.94 mil/mm3 (4.00-5.30) L 05/29/18 07:49 Hgb 11.5 gm/dL (11.6-15.3) L 05/29/18 07:49 Hct 34.8 % (35.0-46.0) L 05/29/18 07:49 MCV 88.3 fL (80.0-100.0) 05/29/18 07:49 MCH 29.2 pg (27.0-34.0) 05/29/18 07:49 MCHC 33.0 % (32.0-36.0) 05/29/18 07:49 RDW 14.1 % (11.6-17.2) 05/29/18 07:49 Plt Count 272 th/mm3 (150-450) 05/29/18 07:49 MPV 7.8 fL (7.0-11.0) 05/29/18 07:49 Neut % (Auto) 44.3 % (16.0-70.0) 05/26/18 06:18 Lymph % (Auto) 39.4 % (9.0-44.0) 05/26/18 06:18 [place] % (Auto) 8.7 % (0.0-8.0) H 05/26/18 06:18 Eos % (Auto) 6.6 % (0.0-4.0) H 05/26/18 06:18 Baso % (Auto) 1.0 % (0.0-2.0) 05/26/18 06:18 Neut # (Auto) 2.2 th/mm3 (1.8-7.7) 05/26/18 06:18 Lymph # (Auto) 1.9 th/mm3 (1.0-4.8) 05/26/18 06:18 [place] # (Auto) 0.4 th/mm3 (0.0-0.9) 05/26/18 06:18 Eos # (Auto) 0.3 th/mm3 (0.0-0.4) 05/26/18 06:18 Baso # (Auto) 0.0 th/mm3 (0.0-0.2) 05/26/18 06:18 WBC Differential . 05/26/18 06:18 Differential Comment Auto diff final 05/26/18 06:18 ESR 40 mm/hr (0-30) H 05/24/18 14:38 Sodium 142 meq/L (136-145) 05/29/18 07:49 Potassium 4.2 meq/L (3.5-5.1) 05/29/18 07:49 Chloride 108 meq/L (98-107) H 05/29/18 07:49 Carbon Dioxide 27.0 meq/L (21.0-32.0) 05/29/18 07:49 Anion Gap 7 meq/L (5-15) 05/29/18 07:49 BUN 10 mg/dL (7-18) 05/29/18 07:49 Creatinine 0.54 mg/dL (0.50-1.00) 05/29/18 07:49 Estimated GFR Greater than 89 mL/min (>89) 05/29/18 07:49 Random Glucose 97 mg/dL (74-106) 05/29/18 07:49 Lactic Acid 0.8 mmol/L (0.4-2.0) 05/24/18 14:38 Calcium 8.1 mg/dL (8.5-10.1) L 05/29/18 07:49 Total Creatine Kinase 129 U/L (26-192) 05/26/18 06:18 C-Reactive Protein 12.10 mg/dL (0.00-0.30) H 05/24/18 14:38 TSH 5.780 uIU/mL (0.358-3.740) H 05/26/18 06:18 Urine Color Straw (Yellw/Straw) 05/25/18 19:40 Urine Clarity Clear (Clear) 05/25/18 19:40 Urine pH 5.0 (5.0-8.5) 05/25/18 19:40 Ur Specific [place] 1.003 (1.002-1.035) 05/25/18 19:40 Urine Protein Negative mg/dL (Neg-Trace) 05/25/18 19:40 Urine Glucose (UA) Negative mg/dL (Negative) 05/25/18 19:40 Urine Ketones Negative mg/dL (Negative) 05/25/18 19:40 Urine Occult Blood Small (Negative) H 05/25/18 19:40 Urine Nitrate Negative (Negative) 05/25/18 19:40 Urine Bilirubin Negative (Negative) 05/25/18 19:40 Urine Urobilinogen Less than 2 mg/dL (Less than 2) 05/25/18 19:40 Ur Leukocyte Esterase Negative (Negative) 05/25/18 19:40 Urine RBC Less than 1 /hpf (0-3) 05/25/18 19:40 Urine WBC Less than 1 /hpf (0-5) 05/25/18 19:40 Ur Squamous Epith Cells <1 /hpf (0-5) 05/25/18 19:40 Micro UA Comment Culture not ind 05/25/18 19:40 Ur Microscopic Review Not Reportable 05/25/18 19:40 Urine Culture Comments Culture not ind 05/25/18 19:[address] 05/24/18 15:12 CONCLUSION: 1. Soft tissue defect at the right lateral chest extending to the pectoralis muscle with surrounding induration. Focal fluid collection is not seen. 2. Hepatic steatosis. Chest MRI 05/26/18 00:00 CONCLUSION: 1. Removal of previously seen implant and postsurgical changes with soft tissue defect at the operative site. No evidence for abscess. Breast Ultrasound 05/29/18 00:00 CONCLUSION: 1. Wound VAC without significant fluid collection. 2. Shadowing echogenic area in the right axilla could be silicone. 3. Echogenic shadowing focus could be calcification or other etiology. - Impressions ITS Impressions Chest CT 05/24/18 15:12 CONCLUSION: 1. Soft tissue defect at the right lateral chest extending to the pectoralis muscle with surrounding induration. Focal fluid collection is not seen. 2. Hepatic steatosis. Chest MRI 05/26/18 00:00 CONCLUSION: 1. Removal of previously seen implant and postsurgical changes with soft tissue defect at the operative site. No evidence for abscess. Breast Ultrasound 05/29/18 00:00 CONCLUSION: 1. Wound VAC without significant fluid collection. 2. Shadowing echogenic area in the right axilla could be silicone. 3. Echogenic shadowing focus could be calcification or other etiology. Discharge Plan - Discharge Disposition Patient Disposition: W/Home Health Service - Discharge Condition Condition: Good - Discharge Order Discharge Orders: Discharge Order (Routine); Ordered 05/30/18 Ordered By: Garry Garzon - Discharge Details Anticipated Discharge Date: 05/30/18 Discharge Comment: DC TO HOME WITH HHC AND WOUND CARE FOR VAC - Physicians Team Primary Care Provider: Fan Alvarenga Attending Provider: Garry Garzon Other Providers: Kenya Douglas MD ; Eliezer Rasmussen MD ; Hailey Ny MD ; Torres Hall MD
[2018-05-30 14:23] VITALS: O2SAT 96
[2018-05-30 14:24] VITALS: BP 149/65; PULSE 88; TEMP 97.8
[2018-05-30] MEDS: DAPTOmycin Inj 900 MG in Sodium Chlor 0.9% Inj 100 ML IV.SIG SCH (14:28)
--- NOTE | 2018-05-30 14:55 | P.DCO ---
- Physical Therapy Order: Evaluate and treat - Home Health Nursing Order: Medical education, Signs/symptoms of disease process, Wound care and dressing changes, IV medication administration - Certification I have seen patient Guadalupe Myers on 05/30/18. My clinical findings support the need for the requested home health care services because: Injectable medication education/administration I certify that my clinical findings support that this patient is homebound because: Non-ambulatory: confined to bed or chair
== END 2018-05-30 18:27 | disposition home health service (06) ==
LOC: NEPE 12:48 → NEDA 16:41 → N04 21:27
PROVIDERS: ADMIT Hospitalist; ATTEND Hospitalist